=== PATIENT | male | born 2000 | race Caucasian/White ===

== ENCOUNTER 2021-05-29 15:52 | Emergency (ER) | payer MEDICAID, SELFPAY ==
[2021-05-29 15:53] VITALS: BP 145/104; PULSE 106; RESP 15; TEMP 36.3; O2SAT 95; BMI 36.6
--- NOTE | 2021-05-29 16:01 | EDS_ITS ---
HPI History of Present Illness Chief Complaint: Lower Extremity Injury Informant: patient Occured/Mechanism Mechanism/Context: Yes fall Onset/Context/Timing Onset: Today Current Severity: Mild Maximum Severity: Moderate Narrative Narrative: Patient presents secondary to fall and right ankle injury. Patient states he tripped over his cat and fell down 8 steps. Is complaining of pain to the lateral portion of the right ankle. He denies any other injury. He states he iced and elevated his ankle for 20 minutes and when it did not improve he came to the emergency room. He has not taken anything for pain. PFSH PFSH no medical history Home Medications clonidine HCl 0.2 mg PO DAILY 05/29/21 [History Last Taken Unknown] dextroamphetamine-amphetamine 30 mg PO DAILY 05/29/21 [History Last Taken Unkno wn] naproxen [Naprosyn] 500 mg PO BID PRN #20 tab 05/29/21 [Rx Last Taken Unknown] Allergy/AdvReac Type Severity Reaction Status Date / Time No Known Allergies Allergy Verified 05/29/21 15:55 Social History Smoking Status: Unknown if ever smoked ROS ROS ED Constitutional Constitutional ED: Denies chills or fever(s) Eyes Eyes: Denies change in vision ENT ENT ED: Denies sore throat Cardiovascular Cardiovascular: Denies chest pain Respiratory/Chest Respiratory/Chest: Denies cough or dyspnea Gastrointestinal Gastrointestinal: Denies abdominal pain, nausea or vomiting Musculoskeletal Musculoskeletal: Denies back pain or neck pain Integumentary Denies Abrasions or rash Neurologic Neurologic: Denies headache(s), paresthesias or weakness Psychiatric Psychiatric: Denies anxiety or depression Allergic/Immunologic Allergic/Immunologic ED: Denies urticaria EXAM Physical Exam Const Vital Signs: 05/29/21 15:53 Temperature 97.3 F L Temperature Source Temporal Pulse Rate 106 H Respiratory Rate 15 Blood Pressure 145/104 H Blood Pressure Mean 117 Pulse Ox 95 Oxygen Delivery Method Room Air Positive well nourished and well developed General Appearance ED: well developed HEENT Reports normocephalic and head/scalp atraumatic Eyes PERRL and EOMs intact bilaterally Neck supple Chest Wall inspection of chest normal and palpation of chest normal Resp normal respiratory effort and clear to auscultation bilaterally Cardio regular rate and regular rhythm GI normal to inspection, nondistended, normoactive bowel sounds Palpation: soft Extremity Extremity Narrative: Tenderness palpation and minimal edema to the lateral malleolus of the right ankle. No tenderness of the foot itself. Strong distal pulses and normal cap refill. No tenderness at the knee itself. Neuro oriented x3 and no sensory deficits noted Sensorium / Orientation: alert Motor Exam: strength 5/5 throughout Psych mental status grossly normal Skin no rashes or lesions noted MDM MDM MDM Narrative Medical decision making narrative: Patient was given naproxen for pain. Right ankle x-rays are obtained. Lab Data Attestation: I reviewed the patient's lab results. Treatment and Re-Evaluation Comments:: Right ankle x-ray per my interpretation reveals no evidence of fracture. Patient be given a stirrup splint and crutches. He may weight-bear as tolerated. Prescription for naproxen will be sent to the pharmacy. He is referred to Dr. Vickers, on-call for orthopedics if not improving. Discharge Plan Triage Chief Complaint: Lower Extremity Injury ED Provider: Lorraine Roe Dx/Rx/DC Orders Clinical Impression: Ankle sprain Instructions: ED Ankle Sprain (Adult) Prescriptions: New naproxen [Naprosyn] 500 mg tablet 500 mg PO BID PRN (Reason: pain) Qty: 20 RF: 0 No Action clonidine HCl 0.2 mg tablet 0.2 mg PO DAILY RF: 0 dextroamphetamine-amphetamine 30 mg capsule,extended release 24hr 30 mg PO DAILY RF: 0 Primary Care Provider: Jermaine Hurtado Referrals: Jermaine Hurtado MD [Primary Care Provider] - Filippo Vickers MD [STAFF PHYSICIAN] - As Needed Disposition Disposition: Home, Self Care
--- NOTE | 2021-05-29 16:03 | RAD_ITS ---
STUDY: X-RAY - RIGHT ANKLE REASON FOR EXAM: Male, 20 years old. fall TECHNIQUE: 3 view(s) of the ankle. COMPARISON: None. FINDINGS: Mild soft tissue swelling is present around ankle joint. No visualized fractures. Normal visualized distal tibia and fibula. Normal medial and lateral malleoli. Normal tibiotalar articulation and ankle mortise. Normal visualized talus and calcaneus. The visualized subtalar, talonavicular, calcaneocuboid and tarsal articulations are normal. RAD/Ankle min 3 Views IMPRESSION: 1. Mild soft tissue swelling is present around ankle joint. No visualized fractures. Electronically Signed: Guille Delvalle MD at 17:05 EDT , Service support ,
[2021-05-29] MEDS: Naproxen 500 MG Tablet PO (16:20)
== END 2021-05-29 16:40 | disposition home or self-care (01) ==
PROVIDERS: Emergency Provider Emergency Medicine; PCP Family Medicine
DX: S93.401A Sprain of unspecified ligament of right ankle, initial encounter (principal); W10.9XXA Fall (on) (from) unspecified stairs and steps, initial encounter; Y93.01 Activity, walking, marching and hiking; Y92.009 Unspecified place in unspecified non-institutional (private) residence as the place of occurrence of the external cause; Y99.8 Other external cause status
CPT/HCPCS: 73610; 99285

== ENCOUNTER 2021-10-11 13:15 | Emergency (ER) | payer MEDICAID, SELFPAY ==
[2021-10-11 13:16] VITALS: BP 140/93; PULSE 104; RESP 16; TEMP 36.5; O2SAT 97; BMI 38.2
--- NOTE | 2021-10-11 14:01 | RAD_ITS ---
STUDY: X-RAY CHEST REASON FOR EXAM: Male, 20 years old. Cough TECHNIQUE: Single AP portable view of the chest. COMPARISON: None. FINDINGS: The lungs are clear and expanded. There is no demonstrated pleural abnormality. Normal size heart. Normal mediastinum and wiley. Normal visualized pulmonary arteries. Normal visualized aortic arch and descending thoracic aorta. Normal visualized thoracic spine. Normal visualized ribs, clavicles, and shoulders. There is no demonstrated abnormality of the visualized soft tissue structures of the upper abdomen. RAD/Chest 1 View (Portable) IMPRESSION: Normal x-ray examination of the chest. Electronically Signed: Roney Ramsey MD at 14:52 EST Tel , Service support ,
--- NOTE | 2021-10-11 14:02 | EX.ED.DYSGE1 ---
HPI History of Present Illness Chief Complaint: Nausea/Vomiting Informant: patient Onset/Context/Timing Onset: Today Context: Gradual Onset Timing: Waxes and wanes Quality: Cramping Location: Right upper quadrant Worsened by: Nothing Relieved by: [place] juice Narrative Narrative: Patient presents with hematemesis that began today. Patient states he had been having some episodes of vomiting. Patient states there was some blood streaks in his emesis today. Patient admits to some right upper quadrant abdominal pain that has been waxing and waning throughout the day. Patient describes it as cramping. Patient states he got better after drinking orange juice. Patient states nothing makes it worse. Patient admits to some diarrhea today as well. Patient denies any dysuria or hematuria. [facility] Medical History ADHD Home Medications clonidine HCl 0.2 mg PO DAILY 05/29/21 [History Last Taken Unknown] dextroamphetamine-amphetamine 30 mg PO DAILY 05/29/21 [History Last Taken Unknown] naproxen [Naprosyn] 500 mg PO BID PRN #20 tab 05/29/21 [Rx Last Taken Unknown] ondansetron 4 mg PO Q8H PRN PRN #10 tab 10/11/21 [Rx Last Taken Unknown] Allergy/AdvReac Type Severity Reaction Status Date / Time No Known Allergies Allergy Verified 10/11/21 13:18 Surgical History no surgical history no surgical history Social History Smoking Status: Never smoker ROS ROS ED Constitutional Constitutional ED: Denies chills or fever(s) Eyes Eyes: Denies blurry vision or change in vision ENT ENT ED: Denies rhinorrhea or sore throat Cardiovascular Cardiovascular: Denies chest pain or palpitations Respiratory/Chest Respiratory/Chest: Denies cough or dyspnea Gastrointestinal Gastrointestinal: Reports abdominal pain, diarrhea, nausea and vomiting Genitourinary Genitourinary ED: Denies dysuria or hematuria Musculoskeletal Musculoskeletal: Reports neck pain; Denies back pain Integumentary Denies abscess or rash Neurologic Neurologic: Denies headache(s) or weakness Allergic/Immunologic Allergic/Immunologic ED: Denies mouth swelling or urticaria EXAM Physical Exam Const Vital Signs: 10/11/21 13:16 Temperature 97.7 F L Temperature Source Temporal Pulse Rate 104 H Respiratory Rate 16 Blood Pressure 140/93 H Blood Pressure Mean 108 Pulse Ox 97 Oxygen Delivery Method Room Air Positive well nourished and well developed General Appearance ED: well developed HEENT Reports moist mucous membranes Neck supple and no JVD Resp normal respiratory effort and clear to auscultation bilaterally Cardio regular rate, regular rhythm and no murmurs GI normal to inspection, nondistended, normoactive bowel sounds and non-tender Palpation: soft Extremity normal to inspection General Extremety ED: Negative for edema or tenderness General Extremity: Negative for edema Neuro oriented x3, CN's II-XII intact bilaterally and no sensory deficits noted Sensorium / Orientation: alert Motor Exam: strength 5/5 throughout Psych mental status grossly normal Skin no rashes or lesions noted MDM MDM MDM Narrative Medical decision making narrative: Patient was given IV fluids and Zofran. CBC was normal. There is no anemia. Comprehensive metabolic profile was essentially within normal limits. Lipase was normal. Urinalysis does not show any evidence of urinary tract infection. Portable 1 view chest x-ray was obtained. On my interpretation, lung guthrie are clear. There is normal cardiac silhouette. There is no evidence of pneumomediastinum. Bony thorax is normal. There is no acute process noted. Radiologist also interpreted the x-ray and agrees. Patient was advised of his findings. Patient was given a prescription for Zofran. Patient was instructed to drink small amounts of fluids more frequently. Patient was instructed to advance his diet as tolerated. Patient was instructed to follow-up with his primary care physician in 5 to 7 days. Patient understood and was agreeable with the plan. All questions were answered. Lab Data Labs: Laboratory Results - last 24 hr 10/11/21 10/11/21 10/11/21 13:44 13:44 14:15 WBC 8.2 RBC 5.26 Hgb 15.5 Hct 43.8 MCV 83.3 MCH 29.5 MCHC 35.4 RDW Std Deviation 38.3 RDW Coeff of Swapna 12.7 Plt Count 308 MPV 9.8 Immature Gran % (Auto) 0.200 Neut % (Auto) 62.4 Lymph % (Auto) 27.5 [place] % (Auto) 7.2 Eos % (Auto) 2.3 Baso % (Auto) 0.4 Absolute Neuts (auto) 5.1 Absolute Lymphs (auto) 2.25 Nucleated RBC % 0 Sodium 139 Potassium 3.9 Chloride 109 H Carbon Dioxide 24.0 Anion Gap 6 BUN 6 L Creatinine 0.59 L Estim Creat Clear Calc 183.61 Est GFR (MDRD) Af Amer 220 Est GFR (MDRD) Non-Af 182 BUN/Creatinine Ratio 10.2 Glucose 95 Calcium 9.5 Total Bilirubin 0.50 AST 11 L ALT 17 Alkaline Phosphatase 99 Total Protein 7.7 Albumin 3.9 Globulin 3.8 Albumin/Globulin Ratio 1.0 Lipase 75 Urine Color Yellow Urine Clarity Clear Urine pH 7.0 Ur Specific [place] 1.010 Urine Protein 15 H Urine Glucose (UA) Normal Urine Ketones Negative Urine Occult Blood Negative Urine Nitrite Negative Urine Bilirubin Negative Urine Urobilinogen 1 H Ur Leukocyte Esterase Negative Urine RBC 0 SEEN Urine WBC 0 SEEN Ur Squamous Epith Cells 0 SEEN Urine Bacteria 0 SEEN Urine Mucus 0 SEEN Radiography Diagnostic Testing: Clinical Impression(s) from Imaging Studies Chest X-Ray 10/11/21 14:01 IMPRESSION: Normal x-ray examination of the chest. Electronically Signed: Roney Ramsey MD at 14:52 EST Tel , Service support , Discharge Plan Triage Chief Complaint: Nausea/Vomiting ED Provider: Mariusz Jean Dx/Rx/DC Orders Clinical Impression: Nausea and vomiting Instructions: ED Vomiting (Adult) Prescriptions: New ondansetron [ondansetron] 4 MG tablet 4 mg PO Q8H PRN PRN (Reason: Nausea) Qty: 10 RF: 0 No Action clonidine HCl 0.2 mg tablet 0.2 mg PO DAILY RF: 0 dextroamphetamine-amphetamine 30 mg capsule,extended release 24hr 30 mg PO DAILY RF: 0 naproxen [Naprosyn] 500 mg tablet 500 mg PO BID PRN (Reason: pain) Qty: 20 RF: 0 Primary Care Provider: Jermaine Hurtado Referrals: Jermaine Hurtado MD [Primary Care Provider] - 3-5 Days Disposition Disposition: Home, Self Care
[2021-10-11 14:10] LABS: Absolute Lymphocyte Count 2.25 X10^3/uL (0.83-4.51); Absolute Neutrophil Count 5.1 X10^3/uL (2.0-7.7); Basophil# 0.03 X10^3/uL; Basophil% 0.4 % (0-1); Eosinophil# 0.19 X10^3/uL; Eosinophils% 2.3 % (0-5); Hematocrit 43.8 % (40-54); Hemoglobin 15.5 g/dL (13.0-16.5); Lymphocyte # 2.25 X10^3/ul (0.83-4.51); Lymphocyte % 27.5 % (19-41); Mean Corp Hgb Conc 35.4 g/dL (32-36); Mean Corpuscular Hgb 29.5 pg (27.0-32.0); Mean Corpuscular Volume 83.3 fL (80-94); Mean Platelet Vol. 9.8 fl (6.2-12.0); Monocyte# 0.59 X10^3/uL; Monocyte% 7.2 % (0-10); NRBC Flagged by Analyzer 0 % (0-5); Neutrophil # 5.09 X10^3/uL (2.7-7.7); Neutrophil % 62.4 % (47-70); Platelet Count 308 K/mm3 (150-450); RBC Distribution Width CV 12.7 % (11.6-14.6); RBC Distribution Width SD 38.3 fl (35.1-43.9); Red Blood Count 5.26 M/mm3 (4.6-6.2); White Blood Count 8.2 K/mm3 (4.4-11.0)
[2021-10-11] MEDS: 0.9% Normal Saline 1,000 ML 1000 ML IV (14:17)
[2021-10-11] MEDS: Ondansetron 4 MG/2 ML Vial IV (14:17)
[2021-10-11 14:23] LABS: Bacteria 0 SEEN /hpf (None Seen); Mucous, Urine 0 SEEN /hpf (<or=2+); Red Blood Cells-Urine 0 SEEN /hpf (0-5); Squamous Epithelial Cells - UA 0 SEEN /hpf (0-5); White Blood Cells 0 SEEN /hpf (0-5)
[2021-10-11 14:24] LABS: Color, Urine Yellow (Yellow); Glucose, Dipstick Normal (Normal); Ketone-Dipstick Negative (Negative); Leukocyte Esterase-Dipstick Negative /ul (Negative); Nitrite-Dipstick Negative (Negative); Occult Blood-Urine Negative /ul (Negative); Protein-Dipstick 15 mg/dl (Negative); Urine Bilirubin Dipstick Negative (Negative); Urine Clarity Clear (Clear); Urine Urobilinogen 1 mg/dl (Normal)
[2021-10-11 14:30] LABS: AST(SGOT) 11 U/L (15-37); Alanine Aminotransfer ALT/SGPT 17 U/L (16-61); Albumin, Serum 3.9 g/dL (3.2-5.0); Alkaline Phosphatase 99 U/L (45-117); Anion Gap 6 (5-15); BUN 6 mg/dL (7-18); BUN/Creat Ratio 10.2 RATIO (10-20); Calcium,Total 9.5 mg/dL (8.5-10.1); Chloride 109 mmol/L (98-107); Creatinine, Serum 0.59 mg/dL (0.70-1.30); EST Glomerular Filtration Rate 182 mL/min (>60); Est Glom Filt Rate - Afr Amer 220 mL/min (>60); Estimated Creatinine Clearance 183.61 ml/min; Globulin 3.8 g/dL (2.2-4.2); Glucose 95 mg/dL (74-106); Lipase 75 U/L (73-393); Potassium 3.9 mmol/L (3.5-5.1); Protein, Total 7.7 g/dL (6.4-8.2); Sodium Level 139 mmol/L (136-145)
[2021-10-11 15:47] VITALS: BP 134/69; PULSE 59; RESP 16; O2SAT 97
== END 2021-10-11 15:47 | disposition home or self-care (01) ==
PROVIDERS: Emergency Provider Emergency Medicine; PCP Family Medicine
DX: R11.2 Nausea with vomiting, unspecified (principal); R10.11 Right upper quadrant pain; R19.7 Diarrhea, unspecified; F90.9 Attention-deficit hyperactivity disorder, unspecified type; Z79.899 Other long term (current) drug therapy
CPT/HCPCS: 71045; 80053; 81001; 83690; 85025; 96374; 99283; J7030; A4216; J2405

== ENCOUNTER → 2022-07-06 | Outpatient (CLI) | payer MEDICAID, SELFPAY ==
--- NOTE | 2022-07-06 14:30 | MRI_ITS ---
STUDY: MRI BRAIN WITH AND WITHOUT CONTRAST REASON FOR EXAM: Male, 21 years old. Migraine headaches, neurofibromatosis type I TECHNIQUE: Standardized multiplanar fat and water weighted pulse sequences were obtained. IV 19ml Clariscan was administered for the contrast portion of the examination. COMPARISON: MRI of the brain dated APRIL 09, 2016 FINDINGS: Normal size of the ventricles and extra-axial spaces for the patient''s age. Normal white matter tracts of the supratentorial brain. There is no evidence for recent intracranial ischemia or other cause of cytotoxic edema on diffusion weighted imaging (DWI). Normal T2* images of the brain without demonstrated susceptibility artifact. There is no demonstrated hemosiderin stain. There are no white matter hyperintensities. Specifically, there are no focal areas of white matter gliosis which are occasionally associated with vasospastic migraine headaches. No focal brain parenchymal lesions are present. No edema or abnormal enhancement is present. No abnormal thickening or enhancement of the meninges or dura demonstrated. Normal bilateral basal ganglia. Normal thalami. There is no extra-axial fluid accumulation. Normal flow voids within the major intracranial circulation suggesting patency by spin echo criteria. Normal venous enhancement. There is no enhancing intra-axial or extra-axial abnormality. Normal sella turcica, pituitary gland, infundibular stalk, optic chiasm and hypothalamus. Normal tectal plate and pineal gland. Normal midbrain, aftab and medulla. Normal cerebellum. Normal basal cisterns. Normal bilateral temporal bones. Normal bilateral internal auditory canals. No demonstrated orbital abnormality, within the constraints of a routine brain study. There is moderate to severe mucus opacification of the bilateral ethmoid air cells.. Normal calvarium and skull base. Reidentification of a small smooth nodule in the scalp overlying the left superior and anterior aspect of the frontal bone. The nodule enhances on the postcontrast study. 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 Normal visualized upper cervical spine. MRI/Brain W/WO Contrast IMPRESSION: 1. Normal unenhanced and enhanced MRI of the brain. 2. No signal abnormality of the brain parenchyma 3. No lesions or enhancement of the brain parenchyma. 4. Reidentification of a small smooth nodule in the scalp overlying the left superior and anterior aspect of the frontal bone. The nodule enhances on the postcontrast study. 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 Electronically Signed: Guille Delvalle MD at 16:01 EDT ,
[2022-07-06 14:39] LABS: Absolute Neutrophil Count 9.2 X10^3/uL (2.0-7.7); Basophil# 0.04 X10^3/uL; Basophil% 0.3 % (0-1); Eosinophil# 0.15 X10^3/uL; Eosinophils% 1.2 % (0-5); Hematocrit 41.4 % (40-54); Hemoglobin 14.1 g/dL (13.0-16.5); Lymphocyte % 17.2 % (19-41); Mean Corp Hgb Conc 34.1 g/dL (32-36); Mean Platelet Vol. 9.7 fl (6.2-12.0); Monocyte# 0.62 X10^3/uL; Monocyte% 5.1 % (0-10); NRBC Flagged by Analyzer 0 % (0-5); Neutrophil # 9.22 X10^3/uL (2.7-7.7); Neutrophil % 75.7 % (47-70); Platelet Count 340 K/mm3 (150-450); RBC Distribution Width SD 37.2 fl (35.1-43.9); Red Blood Count 4.87 M/mm3 (4.6-6.2); White Blood Count 12.2 K/mm3 (4.4-11.0)
[2022-07-06 15:09] LABS: Vitamin B12 480 pg/mL (211-911)
[2022-07-06 15:22] LABS: ALB/GLOB Ratio 1.1 RATIO (0.9-2.4); AST(SGOT) 10 U/L (15-37); Alanine Aminotransfer ALT/SGPT 19 U/L (16-61); Alkaline Phosphatase 92 U/L (45-117); Anion Gap 6 (5-15); BUN 10 mg/dL (7-18); BUN/Creat Ratio 14.9 RATIO (10-20); Calcium,Total 9.2 mg/dL (8.5-10.1); Chloride 106 mmol/L (98-107); Creatinine, Serum 0.67 mg/dL (0.70-1.30); EST Glomerular Filtration Rate 155 mL/min (>60); Est Glom Filt Rate - Afr Amer 187 mL/min (>60); Globulin 3.8 g/dL (2.2-4.2); Glucose 90 mg/dL (74-106); Potassium 3.9 mmol/L (3.5-5.1); Protein, Total 7.8 g/dL (6.4-8.2); Sodium Level 139 mmol/L (136-145); Thyroid Stim Hormone (TSH) 0.52 uIU/mL (0.358-3.74)
[2022-07-12 11:14] LABS: Vitamin B1, Thiamine 158.1 nmol/L (66.5-200.0)
== END | disposition home or self-care (01) ==
PROVIDERS: PCP Family Medicine; Visit Provider Psychiatry & Neurology Neurology
DX: G43.909 Migraine, unspecified, not intractable, without status migrainosus (principal); Q85.01 Neurofibromatosis, type 1; F81.9 Developmental disorder of scholastic skills, unspecified
CPT/HCPCS: 36415; 70553; 80053; 82607; 82746; 84425; 84443; 85025; A9575

== ENCOUNTER 2023-08-24 12:35 | Emergency (ER) | payer MEDICAID, SELFPAY ==
[2023-08-24 12:36] VITALS: BP 140/59; PULSE 84; RESP 16; TEMP 36.7; O2SAT 95; BMI 39.0
--- NOTE | 2023-08-24 13:07 | EX.ED.DYSGE1 ---
HPI History of Present Illness Chief Complaint: Dizziness Detail of Chief Complaint: Lightheadedness, vomiting blood Informant: patient Onset/Context/Timing Onset: Today Context: Sudden Onset Timing: Continuous Quality: Epigastrium Location: Burning Current Severity: Gone Maximum Severity: Moderate Worsened by: Vomiting Relieved by: Nothing Associated Symptoms Associated Symptoms: Hematemesis Narrative Narrative: Patient is a 22-year-old male who has mild cognitive impairment who presents with epigastric burning sensation without reflux-like symptoms. He denies history of reflux, hiatal hernia or peptic ulcer disease. He has vomited 3 times. The first time he did not note any blood. He states that there was streaks of blood second time and blood the third time. He denies black or maroon-colored stool. He does report orthostatic symptoms. He also reported dizziness. When asked to define dizziness he meant lightheaded when he stood. He is on no medication. He has no allergies. He does have history of hypertension per old records. He states he has had no medicine. Prior similar symptoms: No Recent Illness/Hospitalization: No PFSH PFSH Medical History ADHD Hypertension Home Medications NK 08/24/23 [History Last Taken Unknown] Allergy/AdvReac Type Severity Reaction Status Date / Time No Known Allergies Allergy Verified 08/24/23 12:42 Family History Father Diabetes Heart disease Mother Heart disease Hypertension Mental disorder Suicide attempt Surgical History No history of previous surgery Social History housing: homeless Smoking Status: Never smoker second hand exposure: Yes alcohol intake: never substance use type: does not use what type of physical activity do you participate in: walking frequency: daily giacomo/nondenominational: Cheondoism seatbelt use: always ROS ROS ED Constitutional Constitutional ED: Denies chills, fever(s), subjective, sweats or weight loss Eyes Eyes: Denies blurry vision, change in vision or diplopia ENT ENT ED: Denies ear pain, rhinorrhea or sore throat Cardiovascular Cardiovascular: Denies chest pain, orthopnea, palpitations or racing heartbeat Respiratory/Chest Respiratory/Chest: Denies cough, dyspnea, dyspnea on exertion or orthopnea Gastrointestinal Gastrointestinal: Reports abdominal pain, nausea, vomiting and other Details: Hematemesis. ; Denies constipation, diarrhea or melena Genitourinary Genitourinary ED: Denies dysuria, hematuria or urinary frequency Neurologic Neurologic: Denies paresthesias or weakness Psychiatric Psychiatric: Denies anxiety or depression Hematologic/Lymphatic Hematologic/Lymphatic: Reports systems reviewed and no addt'l complaints, except as documented EXAM Physical Exam Const Vital Signs: 08/24/23 12:36 08/24/23 12:44 Temperature 98.1 F Temperature Source Oral Pulse Rate 84 Respiratory Rate 16 Respiratory Effort Normal Respiratory Pattern Normal Blood Pressure 140/59 H Blood Pressure Mean 86 Pulse Ox 95 Oxygen Delivery Method Room Air Positive well nourished, well developed and obese Constitutional Narrative: Blood pressure is slightly elevated. General Appearance ED: well developed and NAD; Negative for cyanotic, diaphoretic or pallor Nutritional Appearance: obese HEENT Reports TM's clear and moist mucous membranes HEENT Narrative: Head is atraumatic and normocephalic. Tympanic Membrane ED: Yes TM's clear Eyes PERRL and EOMs intact bilaterally General Eye ED: Negative for pale conjunctiva or scleral icterus Neck no lymphadenopathy, supple and no JVD Chest Wall inspection of chest normal and palpation of chest normal Resp normal respiratory effort and clear to auscultation bilaterally Cardio regular rate, regular rhythm, S1 normal heart sound, S2 normal heart sound and no murmurs GI normal to inspection, nondistended, normoactive bowel sounds and non-distended; Negative for hepatosplenomegaly or no masses Auscultation: hypoactive bowel sounds Palpation: soft and tender epigastric Back/Spine no CVA tenderness Extremity normal to inspection General Extremety ED: Negative for edema or tenderness General Extremity: Negative for edema Neuro oriented x3, CN's II-XII intact bilaterally and no sensory deficits noted Psych mental status grossly normal Skin no rashes or lesions noted, no wounds and skin turgor normal General Skin Exam: elasticity normal; Negative for jaundice or pallor MDM MDM MDM Narrative Medical decision making narrative: Suspect patient's upper GI bleed is due to Tiffany-Zhou tear. Will drop NG as he is actively bleeding. History of Protonix. CBC was obtained to assess H&H. BMP to assess BUN to creatinine ratio. If NG is positive we will contact Dr. Roman if negative will pull and treat for Tiffany-Zhou tear. History & Record Review Additional record(s) reviewed:: Prior outpatient record, Prior ED visit and Prior labs Lab Data Attestation: I reviewed the patient's lab results. Lab results narrative: CBC and BMP are both normal. Labs: Laboratory Results - last 24 hr 08/24/23 13:26 WBC 9.1 RBC 5.42 Hgb 16.0 Hct 46.3 MCV 85.4 MCH 29.5 MCHC 34.6 RDW Std Deviation 38.4 RDW Coeff of Swapna 12.5 Plt Count 353 MPV 10.0 Immature Gran % (Auto) 0.300 Neut % (Auto) 61.7 Lymph % (Auto) 29.1 [place] % (Auto) 7.3 Eos % (Auto) 1.2 Baso % (Auto) 0.4 Absolute Neuts (auto) 5.6 Absolute Lymphs (auto) 2.65 Nucleated RBC % 0 Sodium 140 Potassium 3.8 Chloride 107 Carbon Dioxide 24.0 Anion Gap 9 BUN 8 Creatinine 0.72 Estim Creat Clear Calc 147.91 Est GFR (MDRD) Af Amer 172 Est GFR (MDRD) Non-Af 142 BUN/Creatinine Ratio 11.1 Glucose 118 H Calcium 9.3 Treatment and Re-Evaluation :: Nurse informing that patient had no blood with emesis. NG was pulled. Discharge Plan Triage Chief Complaint: Dizziness ED Provider: Mehrdad Araujo Dx/Rx/DC Orders Clinical Impression: Tiffany-Zhou syndrome, Learning disability, Neurofibromatosis, type 1, Nausea & vomiting Instructions: Tiffany-Zhou Tear, ED Upper GI Bleeding (Stable) Prescriptions: No Action NK Primary Care Provider: Care Physician,No Primary Referrals: Jermaine Hurtado MD [Non-Staff] - 1-2 Weeks Disposition Disposition: Home, Self Care
[2023-08-24] MEDS: Oxymetazoline 0.05% 1 SPRAY SPRAY.BTL 2 SPRAY NASAL (13:23)
[2023-08-24] MEDS: Famotidine 200 MG/20 ML MDV 20 MG in 0.9% Normal Saline (Pres. free 8 ML 300 MG IV (13:24)
[2023-08-24 13:41] LABS: Absolute Lymphocyte Count 2.65 X10^3/uL (0.83-4.51); Absolute Neutrophil Count 5.6 X10^3/uL (2.0-7.7); Basophil# 0.04 X10^3/uL; Basophil% 0.4 % (0-1); Eosinophil# 0.11 X10^3/uL; Eosinophils% 1.2 % (0-5); Hematocrit 46.3 % (40-54); Lymphocyte # 2.65 X10^3/ul (0.83-4.51); Lymphocyte % 29.1 % (19-41); Mean Corp Hgb Conc 34.6 g/dL (32-36); Mean Corpuscular Hgb 29.5 pg (27.0-32.0); Mean Corpuscular Volume 85.4 fL (80-94); Monocyte# 0.67 X10^3/uL; Monocyte% 7.3 % (0-10); NRBC Flagged by Analyzer 0 % (0-5); Neutrophil # 5.62 X10^3/uL (2.7-7.7); Neutrophil % 61.7 % (47-70); Platelet Count 353 K/mm3 (150-450); RBC Distribution Width CV 12.5 % (11.6-14.6); RBC Distribution Width SD 38.4 fl (35.1-43.9); Red Blood Count 5.42 M/mm3 (4.6-6.2); White Blood Count 9.1 K/mm3 (4.4-11.0)
[2023-08-24 13:58] LABS: Anion Gap 9 (5-15); BUN 8 mg/dL (7-18); BUN/Creat Ratio 11.1 RATIO (10-20); Calcium,Total 9.3 mg/dL (8.5-10.1); Chloride 107 mmol/L (98-107); Creatinine, Serum 0.72 mg/dL (0.70-1.30); EST Glomerular Filtration Rate 142 mL/min (>60); Est Glom Filt Rate - Afr Amer 172 mL/min (>60); Estimated Creatinine Clearance 147.91 ml/min; Glucose 118 mg/dL (74-106); Potassium 3.8 mmol/L (3.5-5.1); Sodium Level 140 mmol/L (136-145)
[2023-08-24 14:29] VITALS: PULSE 72; RESP 16
== END 2023-08-24 14:30 | disposition home or self-care (01) ==
PROVIDERS: Emergency Provider Emergency Medicine; Visit Provider Emergency Medicine
DX: K22.6 Gastro-esophageal laceration-hemorrhage syndrome (principal); Q85.01 Neurofibromatosis, type 1; K92.0 Hematemesis; I10 Essential (primary) hypertension; F81.9 Developmental disorder of scholastic skills, unspecified; R42 Dizziness and giddiness; G31.84 Mild cognitive impairment of uncertain or unknown etiology; E66.9 Obesity, unspecified
CPT/HCPCS: 80048; 85025; 96374; 99285; A4216; J3490

== ENCOUNTER 2023-10-20 16:51 | Emergency (ER) | payer MEDICAID, SELFPAY ==
[2023-10-20 17:05] VITALS: BP 156/76; PULSE 89; RESP 18; TEMP 36.6; O2SAT 96
[2023-10-20 17:05] LABS: Absolute Lymphocyte Count 2.82 X10^3/uL (0.83-4.51); Absolute Neutrophil Count 5.6 X10^3/uL (2.0-7.7); Basophil# 0.04 X10^3/uL; Basophil% 0.4 % (0-1); Eosinophil# 0.23 X10^3/uL; Eosinophils% 2.4 % (0-5); Hematocrit 42.7 % (40-54); Hemoglobin 14.6 g/dL (13.0-16.5); Lymphocyte # 2.82 X10^3/ul (0.83-4.51); Lymphocyte % 29.4 % (19-41); Mean Corp Hgb Conc 34.2 g/dL (32-36); Mean Corpuscular Hgb 29.5 pg (27.0-32.0); Mean Corpuscular Volume 86.3 fL (80-94); Mean Platelet Vol. 10.2 fl (6.2-12.0); Monocyte# 0.83 X10^3/uL; Monocyte% 8.7 % (0-10); NRBC Flagged by Analyzer 0 % (0-5); Neutrophil # 5.64 X10^3/uL (2.7-7.7); Neutrophil % 58.8 % (47-70); Platelet Count 331 K/mm3 (150-450); RBC Distribution Width CV 12.3 % (11.6-14.6); RBC Distribution Width SD 38.4 fl (35.1-43.9); Red Blood Count 4.95 M/mm3 (4.6-6.2); White Blood Count 9.6 K/mm3 (4.4-11.0)
[2023-10-20 17:19] LABS: Anion Gap 7 (5-15); BUN 10 mg/dL (7-18); BUN/Creat Ratio 13.9 RATIO (10-20); Calcium,Total 9.3 mg/dL (8.5-10.1); Chloride 107 mmol/L (98-107); Creatinine, Serum 0.72 mg/dL (0.70-1.30); EST Glomerular Filtration Rate 142 mL/min (>60); Est Glom Filt Rate - Afr Amer 171 mL/min (>60); Glucose 109 mg/dL (74-106); Potassium 3.6 mmol/L (3.5-5.1); Sodium Level 139 mmol/L (136-145); Troponin-I HS (w/2H Reflex) 5 pg/mL (3.0-78.0)
--- NOTE | 2023-10-20 17:30 | RAD_ITS ---
INDICATION: chest pain EXAMINATION/TECHNIQUE: X-RAY - XR Chest 1 View COMPARISON: 10/11/2021. FINDINGS: LINES/DEVICES: None. LUNGS: No consolidation, edema or effusion. No pneumothorax. MEDIASTINUM AND CARDIOVASCULAR STRUCTURES: Cardiac silhouette not enlarged. Central airways and mediastinal contour are unremarkable. BONES AND SOFT TISSUES: Unremarkable. RAD/Chest 1 View (Portable) IMPRESSION: No radiographic evidence of acute cardiopulmonary disease. Electronically Signed: Vikki Alvarado MD at 18:08 EST Reading Location ID and State: [id number] / Tel , Service support ,
--- OUTSIDE RECORDS SUMMARY | 2023-10-20 18:05 | XMS RPT_ITS | CCD ---
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 Helper Name Role Phone LULA RODAS Unavailable Unavailable PHYSICIAN, NONE Unavailable Unavailable TRESA KIRK Unavailable Unavailable PHYSICIAN, NONE Unavailable Unavailable DANYA GALLARDO Unavailable Unavailable PHYSICIAN, NONE Unavailable Unavailable ERIC OSUNA Unavailable Unavailable PHYSICIAN, NONE Unavailable Unavailable VIVEK RODAS Unavailable Unavailable GORDON BARBOSA Unavailable Unavailable VIVEK RODAS Unavailable Unavailable GORDON BARBOSA Unavailable Unavailable Gordon Barbosa MD Primary Care Provider DOSHASMUKH WILEY MD Attending Unavailalexandra e DOSHASMUKH WILEY MD Primary Care Unavailalexandra e DOSHASMUKH WILEY MD Admitting UnavailANUPAM Paredes Attending Unavailable ANUPAM RITTER Primary Care Unavailable ANUPAM RITTER Admitting Unavailable DELMIS GEE MD Attending Unavailable DELMIS GEE MD Primary Care Unavailable DELMIS GEE MD Admitting Unavailable THEODORA BRADLEY DO Admitting Unavailable GORDON BARBOSA Referring Unavailab GORDON Espinosa Consulting Unavailab THEODORA Adkins DO Attending Unavailable THEODORA BRADLEY DO Primary Care Unavailable PROVIDER, UNKNOWN Consulting Unavailable DR RUBY MOORE Attending Unavailaiden ble DR RUBY MOORE Primary Care Unavaila ble DR RUBY MOORE Admitting Unavaila ble Medications Current Medications Medication Drug Class(es) Dates Sig (Normalized) Sig (Original) omeprazole 40 mg delayed release oral capsule (1 source) Proton Pump Inhibitor Start: 12-25-2021 End: 03-25-2022 take 1 capsule by mouth once daily omeprazole (PRILOSEC) 40 mg capsule Indications: Hematemesis with nausea , Hematochezia , Gastroesophageal reflux disease, unspecified whether esophagitis present Take 1 capsule by mouth once daily. 30 capsule 2 12/25/2021 03/25/2022 Active Completed/Discontinued Medications Medication Drug Class(es) Dates Sig (Normalized) Sig (Original) 24 hr amphetamine aspartate 7.5 mg / amphetamine sulfate 7.5 mg / dextroamphetamine saccharate 7.5 mg / dextroamphetamine sulfate 7.5 mg extended release oral capsule (1 source) Central Nervous System Stimulant Start: 05-02-2015 take 1 capsule by mouth once daily dextroamphetamine- amphetamine (ADDERALL XR) 30 mg 24 hr capsule Indications: ADHD (attention deficit hyperactivity disorder) Take 1 capsule by mouth once daily. 30 capsule 0 05/02/2015 Active Problems Active Problems Problem Classification Problem Date Documented Date Episodic/Chronic Attention-deficit, conduct, and disruptive behavior disorders (1 source) Attention deficit hyperactivity disorder; Translations: [Attention deficit disorder with hyperactivity] Onset: 10-26-2011 10-19-2021 Chronic Attention-deficit, conduct, and disruptive behavior disorders (1 source) Attention-deficit hyperactivity disorder, unspecified type; Translations: [Attention-deficit hyperactivity disorder, unspecified type] Onset: 12-08-2022 Chronic Headache; including migraine (1 source) Migraine; Translations: [Migraine, unspecified, not intractable, without status migrainosus] 02-09-2017 Chronic Nervous system congenital anomalies (1 source) Neurofibromatosis syndrome; 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, unspecified] Onset: 09-03-2009 10-19-2021 Chronic Substance-related disorders (1 source) Nicotine dependence, unspecified, uncomplicated; Translations: [Nicotine dependence, unspecified, uncomplicated] Onset: 07-19-2022 Chronic Past or Other Problems Problem Classification Problem Date Documented Da te Episodic/Chronic Fever of unknown origin (1 source) Fever, unspecified; Translations: [Fever, unspecified] Onset: 07-26-2022 Episodic Nonspecific chest pain (3 sources) Chest pain, unspecified; Translations: [Chest pain, unspecified] Onset: 07-19-2022 Episodic Residual codes; unclassified (1 source) Family history of ischemic heart disease and other diseases of the circulatory system; Translations: [Family history of ischemic heart disease and other diseases of the circulatory system] Onset: 07-19-2022 Episodic Residual codes; unclassified (1 source) Family history of stroke; Translations: [Family history of stroke] Onset: 07-19-2022 Episodic Results Test Name Value Interpretation Reference Range Facil ity Encounters Encounter Date Encounter Type Care Provider Facility Start: 12-08-2022 ambulatory ANUPAM RITTER [facility] Start: 07-26-2022 End: 07-26-2022 ambulatory DELMIS GEE [facility] Start: 07-19-2022 End: 07-20-2022 Emergency department patient visit HASMUKH TUTTLE DOS%FRANCINE [facility] Start: 01-30-2022 End: 01-31-2022 Emergency department patient visit THEODORA GALE [facility] Start: 01-27-2022 End: 01-27-2022 Emergency department patient visit DR RUBY MOORE [facility] Start: 01-05-2022 Telephone encounter Danny Barbosa MD Work Phone: [facility] [place] Plan of Treatment Date Care Activity Detail Author Start: 06-24-2022 Influenza vaccination INFLUENZA (Sea son Ended) [facility] Start: 05-01-2022 COVID-19 VACCINE (3 - Booster for Moderna series) COVID-19 VACCINE (3 - Booster for Moderna series) [facility] Start: 10-26-2021 Urine microalbumin profile DTA P,TDAP,TD (7 - Td or Tdap) [facility] Start: 2017 ONE PNEUMOVAX PRIOR TO AGE 65 ONE PNEUMOVAX PRIOR TO AGE 65 [facility] Start: 2016 HEPATITIS C SCREENING HEPATITIS C SC GABYNING [facility] Start: 2016 HIV SCREENING HIV SCREENING [facility] Start: 2012 PEDS TO ADULT TRANSI TION ANNUAL ASSESSMENT PEDS TO ADULT TRANSITION ANNUAL ASSESSMENT [facility] Start: 2010 Adult depression scr eening assessment DEPRESSION SCREENING [facility] Start: 2010 PEDS TO ADULT TRANSI TION INITIAL DISCUSSION PEDS TO ADULT TRANSITION INITIAL DISCUSSION [facility] Start: 2009 HPV VACCINE (1 - Mal e 2-dose series) HPV VACCINE (1 - Male 2-dose series) [facility] Start: 2008 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 (1 of 2 - Risk Bexsero 2-dose series) MENINGOCOCCAL B: Consider based on risk (1 of 2 - Risk Bexsero 2-dose series) [facility] Immunizations Immunization Date Immunization Notes Care Provider Tasneem freeman 02-09-2017 meningococcal polysaccharide (groups A, C, Y and W-135) diphtheria toxoid conjugate vaccine (MCV4P) Gordon Barbosa MD Work Phone: [facility] 05-02-2015 meningococcal polysaccharide (groups A, C, Y and W-135) diphtheria toxoid conjugate vaccine (MCV4P) Gordon Barbosa MD Work Phone: [facility] Work Phone: 10-26-2011 influenza virus vaccine, unspecified formulation Gordon Barbosa MD Work Phone: [facility] Work Phone: 10-26-2011 tetanus toxoid, redu amadou diphtheria toxoid, and acellular pertussis vaccine, adsorbed Gordon Barbosa MD Work Phone: [facility] Work Phone: 10-26-2011 varicella virus vaccine Sholai omaira Barbosa MD Work Phone: [facility] Work Phone: 08-02-2008 influenza virus vaccine, live, attenuated, for intranasal use Gordon Barbosa MD Work Phone: [facility] Work Phone: 02-06-2004 diphtheria, tetanus toxoids and acellular pertussis vaccine Gordon Barbosa MD Work Phone: [facility] Work Phone: 02-06-2004 measles, mumps and rubella virus vaccine Gordon Barbosa MD Work Phone: [facility] Work Phone: 02-06-2004 poliovirus vaccine, inactivated Gordon Barbosa MD Work Phone: [facility] Work Phone: 06-04-2000 diphtheria, tetanus toxoids and acellular pertussis vaccine Gordon Barbosa MD Work Phone: [facility] Work Phone: 06-04-2000 haemophilus influenz ae type b vaccine, HbOC conjugate Gordon Barbosa MD Work Phone: [facility] Work Phone: 06-04-2000 poliovirus vaccine, inactivated Gordon Barbosa MD Work Phone: [facility] Work Phone: 12-09-1999 measles, mumps and rubella virus vaccine Gordon Barbosa MD Work Phone: [facility] Work Phone: 12-09-1999 varicella virus vaccine Sholai omaira Barbosa MD Work Phone: [facility] Work Phone: 08-10-1999 hepatitis B vaccine, pediatric or pediatric/adolescent dosage Gordon Barbosa MD Work Phone: [facility] Work Phone: 05-30-1999 diphtheria, tetanus toxoids and acellular pertussis vaccine Gordon Barbosa MD Work Phone: [facility] Work Phone: 05-30-1999 haemophilus influenz ae type b vaccine, HbOC conjugate Gordon Barbosa MD Work Phone: [facility] Work Phone: 03-30-1999 diphtheria, tetanus toxoids and acellular pertussis vaccine Gordon Barbosa MD Work Phone: [facility] Work Phone: 03-30-1999 haemophilus influenz ae type b vaccine, HbOC conjugate Gordon Barbosa MD Work Phone: [facility] Work Phone: 03-30-1999 poliovirus vaccine, inactivated Gordon Barbosa MD Work Phone: [facility] Work Phone: 01-22-1999 diphtheria, tetanus toxoids and acellular pertussis vaccine Gordon Barbosa MD Work Phone: [facility] Work Phone: 01-22-1999 haemophilus influenz ae type b vaccine, HbOC conjugate Gordon Barbosa MD Work Phone: [facility] Work Phone: 01-22-1999 poliovirus vaccine, inactivated Gordon Barbosa MD Work Phone: [facility] Work Phone: 1998 hepatitis B vaccine, pediatric or pediatric/adolescent dosage Gordon Barbosa MD Work Phone: [facility] Work Phone: 1998 hepatitis B vaccine, pediatric or pediatric/adolescent dosage Gordon Barbosa MD Work Phone: [facility] Work Phone: Payers Date Payer Category Payer Medicaid [id number] 2016 Medicaid [employer] [facility] MEDICAID [id number] 2016-Present [phone] [address] [place] [address] Medicaid [id number] 1998 Unknown [id number] 1998 Unknown [id number] 1998 Unknown [id number] 1998 Unknown [id number] 1998 Unknown [id number] 1998 Unknown [id number] 1998 Unknown [id number] 1998 Unknown [id number] 1998 Unknown [id number] 1998 Unknown [id number] Social History Date Type Detail Facility Start: 12-24-[address] [facility] History of tobacco use Cigar Smoker [facility] Start: 12-24-2021 Tobacco use and exposure Forme r smokeless tobacco user [facility] History of tobacco use Snuff User [facility] Start: 12-25-2021 Alcohol intake Current non-dr rn plastic surgery of alcohol (finding) [facility] Start: 02-09-2017 Tobacco Comment <1 cigar per d ay, 1 dip every couple weeks [facility] Start: 1998 Sex Assigned At Not on file [facility] Start: 11-25-2021 End: 12-25-2021 Exposure to SARS-CoV-2 (event) Not sure [facility] Note 01-06-2022 Telephone Encounter - Ioana Tamayo Ma - 01/06/2022 1:49 PM EDTTelephone Encounter - Zoe Gasca Ma - 01/06/2022 11:37 AM EDTTelephone Encounter - Ioana Tamayo Ma - 01/05/2022 4:42 PM EDT Note Date & Type Note Facility 01-06-2022 Miscellaneous Notes No pt needs notified of results. This was a result note which I switched to phone note. I called pt veronica quiles fast busy. Tried calling other number [phone], was told I had the wrong number. Letter mailed to pt home to call office back for results. Ioana Tamayo Ma Felicia - pt was notified per result note, is that correct? Before I close encounter. Zoe Gasca Ma ----- Message from Gordon Barbosa MD sent at 01/05/2022 3:31 PM EDT ----- Normal labs aside from elevated fibrinogen and CRP which are likely acute phase response and not related to bleeding symptoms. CXR negative/normal. If patient is continuing to cough up blood, will place referral to pulmonology as discussed. Follow up with general surgery for blood in vomit and stools and with ENT for bloody noses. documented in this encounter [facility] Progress note 12-25-2021 Note Date & Type Note Facility 12-25-2021 Note HNO ID: [id number] Author: Gordon Barbosa MD Service: ? Author Type: Physician Type: Progress Notes Filed: 12/28/2021 11:09 AM Note Text: Chief Complaint No chief complaint on file. HPI Bria Drummond is a 21 year old male who presents here today for Above Complaints.. Patient evaluated at [facility] ED on 10/11 for CC nausea with vomiting and hematemesis which started same day. Also admitted to [facility] abdominal pain/cramping and diarrhea. Patient was given IV fluids and Zofran in the ED. CBC was normal. CMP, Lipase, UA, and CXR all normal. Given rx for zofran for home and advised patient to follow up in our office in 5-7 days. Since his discharge home, patient states that he has had continued episodes of hematemesis and now has hemoptysis 1-2 times per day, and frequent nosebleeds. Admits to intermittent SOB, lightheadedness, and chest pain with cough. Denies fever, wheezing, travel outside the country, incarceration, contact with TB. Vomiting almost every morning when he wakes up. States that he will get a drink of water and then vomits. States usually looks like streaks of bright red blood. Up to 50% blood. Has had blood in his stool which looks dark red as well. Admits to recent GERD, but has not taken anything OTC for symptoms. 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 Bleeding mostly from the right nostril. Usually lasts for about 5 minutes. Pinches nose and tilts head back and symptoms stop with only small amount of bleeding. Denies NSAID use, family history of bleeding disorder or coagulopathy, caffeine use, illicit drug use. Past medical history, appointments, medications, allergies reviewed. Previous Medical History PAST MEDICAL HISTORY Diagnosis Date - ADD (attention deficit disorder with hyperactivity) - Migraine - NF (neurofibromatosis) (HCC) - Tobacco use Previous Surgical History PAST SURGICAL HISTORY Procedure Laterality Date - CIRCUMCISION W/CLAMP/OTH DEV W/BLOCK 1998 - ORCHIECTOMY W/ABD EXPLORATION undescended testicle, unilateral orchiectomy Family History FAMILY HISTORY Problem Relation Age of Onset - Heart Paternal Grandmother Heart problems - Heart Father [place] - Hypertension Father - Asthma Father - Diabetes Father - Colon Cancer Father 44 - other (sleep apnea) Father - Cancer Maternal Aunt lung - Diabetes Maternal Aunt Maternal AND Paternal sides - other (Neurofibromytosis) Maternal Aunt Mother, MGM, and 3 siblings - other (Cirrhosis) Maternal Aunt Maternal side - other (neurofibromatosis) Mother - Alcohol/Drug Maternal Grandfather - other (cirrhosis) Maternal Grandfather - COPD Paternal Grandfather Patient Allergies ALLERGIES No Known Allergies Current Medications Current Outpatient Medications on File Prior to Visit Medication Sig - SUMATRIPTAN SUCCINATE (IMITREX ORAL) Take by mouth. - guanFACINE (INTUNIV) 4 mg Tb24 Take 1 tablet by mouth once daily. - dextroamphetamine-amphetamine (ADDERALL XR) 30 mg 24 hr capsule Take 1 capsule by mouth once daily. - CLONIDINE 0.1 MG TAB Take one(1) tablet daily No current facility-administered medications on file prior to visit. Social History Social History Tobacco Use - Smoking status: Former Smoker Years: 1.00 Types: Cigars - Smokeless tobacco: Former User Types: Snuff - Tobacco comment: <1 cigar per day, 1 dip every couple weeks Substance Use Topics - Alcohol use: No - Drug use: No Review of Symptoms REVIEW OF SYSTEMS See HPI EXAM: BP 120/72 Pulse (!) 130 Temp 37 ?C (98.6 ?F) Resp 16 Wt 108.4 kg (239 lb) SpO2 100% General Appearance: Well appearing, alert, in no acute distress, well-hydrated, well nourished.. Skin: Skin color, texture, turgor normal, no suspicious rashes or lesions. Lungs: Lungs clear to auscultation. No wheezing, rhonchi, rales.. Heart: Negative findings: no murmurs, clicks, or gallops, Positive findings: tachycardia. Abdomen: Normal abdominal exam, Abdomen soft, non-tender. Bowel sounds normal. No masses, organomegaly. Extremities: No deformities, edema, skin discoloration, clubbing or cyanosis. Good capillary refill. . Rectal: Negative findings: perianal area normal, anus normal, digital rectal exam negative, anal sphincter tone normal. Health Maintenance List MENINGOCOCCAL B: Consider based on risk(1 of 2 - Risk Bexsero 2-dose series) Never done HPV VACCINE(1 - Male 2-dose series) Never done DEPRESSION SCREENING Never done HEPATITIS C SCREENING Never done HIV SCREENING Never done ONE PNEUMOVAX PRIOR TO AGE 65 Never done INFLUENZA(1) due on 06/24/2021 DTAP,TDAP,TD(7 - Td or Tdap) due on 10/26/2021 COVID-19 VACCINE(3 - Booster for Moderna series) due on 05/01/2022 MENINGOCOCCAL CONJUGATE Completed Data reviewed EKG: Sinus tachycardia at 112 bpm, possible inferior infarct, age undetermined, abnormal EKG ASSES (more content not included)... [facility] Progress note 12-24-2021 Note Date & Type Note Facility 12-24-2021 Note HNO ID: [id number] Author: Gordon Barbosa MD Service: ? Author Type: Physician Type: Progress Notes Filed: 12/24/2021 5:10 PM Note Text: Patient missed appointment time and will need to reschedule to tomorrow. Nurse roomed patient not realizing he was late. VSS. Did not appear in any acute distress per nurse report. [facility] Summary Purpose Family History No Family History Records FoundNo Family History Records FoundNo Family History Records Found Advance Directives No Advanced Directives Records FoundNo Advanced Directives Records FoundNo Advanced Directives Records Found Additional Source Comments (unrecognized sect ion and content) No Status Records FoundNo Status Records FoundNo Status Records Found INFORMATION SOURCE (unrecogn ized section and content) DATE CREATED AUTHOR AUTHOR'S ORGANIZ ATION 06/26/2022 [facility] DATE CREATED AUTHOR AUTHOR'S ORGANIZ ATION 12/08/2022 [facility] Source Comments (unrecognize d section and content) In the event this informatio n is protected by the Federal Confidentiality of Alcohol and Drug Abuse Patient Records regulations: The Federal rules restrict any use of the information to criminally investigate or prosecute any alcohol or drug abuse patient.[facility] Reason for Visit (unrecogniz ed section and content) Care Teams (unrecognized sec tion and content) FOR RECORDS PERTAINING TO PATIENTS WHO ARE OR HAVE BEEN ENROLLED IN A CHEMICAL DEPENDENCY/SUBSTANCEABUSE PROGRAM, SOME INFORMATION MAY BE OMITTED. This clinical summary was aggregated from multiple sources. Caution should be exercised in using it in the provision of clinical care. This summary normalizes information from multiple sources, and as a consequence, information in this document may materially change the coding, format and clinical context of patient data. In addition, data may be omitted in some cases. CLINICAL DECISIONS SHOULD BE BASED ON THE PRIMARY CLINICAL RECORDS. [employer] provides no warranty or guarantee of the accuracy or completeness of information in this document.
--- NOTE | 2023-10-20 18:28 | ED.VIS.CHEST ---
HPI History of Present Illness Chief Complaint: Chest Pain Informant: patient Narrative Narrative: 22-year-old states he was stressed seen because his car broke down and he was not going to be able to get to work in this context, he started having chest discomfort that moved over to the left side . [place] crushing. Almost completely gone right now. Denies any other associated symptoms except for some mild nausea. No dyspnea, nonpleuritic, he states he thinks he has undiagnosed anxiety issues. He denies any recent leg pain or swelling, recent travel out of the area, hospitalization in the last month or 2 although he was hospitalized about 3 months ago, he has not had any surgeries recently. No leg pain or swelling or history of DVT or PE. [facility] Medical History (Updated 10/20/23 @ 18:[address] Peter Roth MD) ADHD Hypertension Learning disability Neurofibromatosis, type 1 Home Medications NK 08/24/23 [History Last Taken Unknown] Allergy/AdvReac Type Severity Reaction Status Date / Time No Known Allergies Allergy Verified 10/20/23 17:10 Family History Father Diabetes Heart disease Mother Heart disease Hypertension Mental disorder Suicide attempt Surgical History No history of previous surgery Social History housing: homeless Smoking Status: Never smoker second hand exposure: Yes alcohol intake: never substance use type: does not use what type of physical activity do you participate in: walking frequency: daily giacomo/roman catholic: Holiness seatbelt use: always ROS ROS ED Constitutional Constitutional ED: Denies chills or fever(s) Eyes Eyes: Denies change in vision or diplopia ENT ENT ED: Denies rhinorrhea or sore throat Cardiovascular Cardiovascular: Reports chest pain; Denies palpitations Respiratory/Chest Respiratory/Chest: Denies cough or dyspnea Gastrointestinal Gastrointestinal: Reports nausea; Denies abdominal pain, diarrhea or vomiting Genitourinary Genitourinary ED: Denies dysuria or hematuria Musculoskeletal Musculoskeletal: Denies back pain or neck pain Integumentary Denies abscess or rash Neurologic Neurologic: Denies headache(s), paresthesias or weakness Psychiatric Psychiatric: Reports anxiety; Denies suicidal thoughts EXAM Physical Exam Const Vital Signs: 10/20/23 17:05 10/20/23 18:52 10/20/23 18:52 Temperature 97.8 F Temperature Source Oral Pulse Rate 89 85 Respiratory Rate 18 20 H Blood Pressure 156/76 H 128/78 H Blood Pressure Mean 102 94 Pulse Ox 96 98 95 Oxygen Delivery Method Room Air Room Air Room Air Positive well nourished and well developed Constitutional Narrative: Will-appearing, using cell phone, legs crossed General Appearance ED: well developed and NAD HEENT Reports moist mucous membranes normocephalic and atraumatic Eyes PERRL and EOMs intact bilaterally Neck full ROM and supple Chest Wall inspection of chest normal and palpation of chest normal Resp normal respiratory effort and clear to auscultation bilaterally Cardio regular rate, regular rhythm and no murmurs Rate: Negative for tachycardic GI non-tender and non-distended Auscultation: normoactive bowel sounds Palpation: soft Back/Spine no CVA tenderness General Back: other FROM Extremity normal to inspection and no calf tenderness General Extremety ED: Negative for edema, pulses abnormal or tenderness General Extremity: Negative for edema or pulses abnormal Neuro oriented x3, CN's II-XII intact bilaterally and no sensory deficits noted Sensorium / Orientation: awake and alert Motor Exam: strength 5/5 throughout Psych mental status grossly normal Skin no rashes or lesions noted and no wounds Heart Score History: Slightly/Non-Suspicious ECG: Normal Age: </= 45 years Risk Factors: 1 or 2 Risk Factors Troponin: </= Normal Limit Score: 1 MDM MDM MDM Narrative Medical decision making narrative: Patient with a normal EKG, 2 sets of negative enzymes, a PERC score of 0 ruling out PE without further workup necessary, 1 view chest x-ray my interpretation normal/negative radiology in agreement, and his discomfort is most gone. He declined an offer for further medication for his discomfort. He is mainly concerned about getting a work note for today. Will do this, reassured patient advised to follow-up we discussed reasons to return. Lab Data Attestation: I reviewed the patient's lab results. Labs: Laboratory Results - last 24 hr 10/20/23 10/20/23 16:55 19:16 WBC 9.6 RBC 4.95 Hgb 14.6 Hct 42.7 MCV 86.3 MCH 29.5 MCHC 34.2 RDW Std Deviation 38.4 RDW Coeff of Swapna 12.3 Plt Count 331 MPV 10.2 Immature Gran % (Auto) 0.300 Neut % (Auto) 58.8 Lymph % (Auto) 29.4 Shackelford % (Auto) 8.7 Eos % (Auto) 2.4 Baso % (Auto) 0.4 Absolute Neuts (auto) 5.6 Absolute Lymphs (auto) 2.82 Nucleated RBC % 0 Sodium 139 Potassium 3.6 Chloride 107 Carbon Dioxide 25.0 Anion Gap 7 BUN 10 Creatinine 0.72 Est GFR (MDRD) Af Amer 171 Est GFR (MDRD) Non-Af 142 BUN/Creatinine Ratio 13.9 Glucose 109 H Calcium 9.3 Troponin I High Sens 5 4 Radiography Diagnostic Testing: Clinical Impression(s) from Imaging Studies Chest X-Ray 10/20/23 17:30 IMPRESSION: No radiographic evidence of acute cardiopulmonary disease. Electronically Signed: Vikki Alvarado MD at 18:08 EST Reading Location ID and State: [id number] / Tel , Service support , Rhythm Strip Rhythm Strip: Sinus Rhythm Rate: 80 Ectopy: None EKG Initial EKG: Attestation: I personally reviewed and interpreted this EKG as follows: Interpretation: Sinus Rhythm and No Acute Injury Pattern Discharge Plan Triage Chief Complaint: Chest Pain ED Provider: Peter Roth Dx/Rx/DC Orders Clinical Impression: Non-cardiac chest pain, Anxiety attack Instructions: ED Chest Pain, Noncardiac Prescriptions: No Action NK Stand Alone Forms: Work / School Excuse Primary Care Provider: Care Physician,No Primary Referrals: Anabella Paul [Non-Staff] - 1-2 Weeks Care Physician,No Primary [Primary Care Provider] - Disposition Disposition: Home, Self Care
[2023-10-20 18:52] VITALS: BP 128/78; PULSE 85; RESP 20; O2SAT 95; O2SAT 98
--- NOTE | 2023-10-20 18:56 | ED.RN ---
PT STATES HE CALLED A TAXI AND FOUND OUT IT WAS GOING TO BE 4 HRS TO GET HOME TO [place] WHERE HE LIVES IN THE GROUP HOME. HE THEN CLLED THE EMS BUT STATES CP WENT AWAY SOON HE GOT TO A ROOM. EXPLAINED THE IMPORTANCE OF NOT USING A SQUAD A TAXI.
[2023-10-20 19:00] LABS: Reflex Troponin-HS? (from REC) Y
[2023-10-20 20:05] LABS: Troponin-I HS 4 pg/mL (3.0-78.0)
[2023-10-20 20:19] VITALS: BP 142/92; RESP 18
== END 2023-10-20 20:19 | disposition home or self-care (01) ==
PROVIDERS: Emergency Provider Emergency Medicine; Visit Provider Emergency Medicine
DX: R07.89 Other chest pain (principal); F41.9 Anxiety disorder, unspecified; Z63.79 Other stressful life events affecting family and household; I10 Essential (primary) hypertension; Z59.00 Homelessness unspecified
CPT/HCPCS: 71045; 80048; 84484; 85025; 93005; 99284; A4216

== ENCOUNTER 2023-11-10 22:49 | Emergency (ER) | payer MEDICAID, SELFPAY ==
[2023-11-10 22:50] VITALS: BP 144/80; PULSE 85; RESP 16; TEMP 36.4; O2SAT 98; BMI 38.7
--- OUTSIDE RECORDS SUMMARY | 2023-11-11 00:06 | XMS RPT_ITS | CCD ---
Author Name Unknown Address [address] [place] [address] Organization [facility] Care Team Providers Care Plastic Manager Name Role Phone LULA RODAS Unavailable Unavailable [...] Provider Facility Start: 12-08-2022 ambulatory ANUPAM RITTER [facility] Start: 07-26-2022 End: 07-26-2022 ambulatory DELMIS GEE [facility] Start: 07-19-2022 End: 07-20-2022 Emergency department patient visit HASMUKH TUTTLE DOS%FRANCINE [facility] Start: 01-30-2022 End: 01-31-2022 Emergency department patient visit THEODORA GALE [facility] Start: 01-27-2022 End: 01-27-2022 Emergency department patient visit DR RUBY MOORE [facility] Start: 01-05-2022 Telephone encounter Danny Barbosa MD Work Phone: [facility] Plan of Treatment Date Care Activity Detail Author Start: 06-24-2022 Influenza vaccination INFLUENZA (Sea son Ended) [facility] Start: 05-01-2022 COVID-19 VACCINE (3 - Booster for Moderna series) COVID-19 VACCINE (3 - Booster for Moderna series) [facility] Start: 10-26-2021 Urine microalbumin profile DTA P,TDAP,TD (7 - Td or Tdap) [facility] Start: 2017 ONE PNEUMOVAX PRIOR TO AGE 65 ONE PNEUMOVAX PRIOR TO AGE 65 [facility] Start: 2016 HEPATITIS C SCREENING HEPATITIS C SC GABYNING [facility] Start: 2016 HIV SCREENING HIV SCREENING [facility] Start: 2012 PEDS TO ADULT TRANSI TION ANNUAL ASSESSMENT PEDS TO ADULT TRANSITION ANNUAL ASSESSMENT [facility] Start: 2010 Adult depression scr eening assessment DEPRESSION SCREENING [facility] Start: 2010 PEDS TO ADULT TRANSI TION INITIAL DISCUSSION PEDS TO ADULT TRANSITION INITIAL DISCUSSION [facility] Start: 2009 HPV VACCINE (1 - Mal e 2-dose series) HPV VACCINE (1 - Male 2-dose series) [facility] Start: 2008 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 (1 of 2 - Risk Bexsero 2-dose series) MENINGOCOCCAL B: Consider based on risk (1 of 2 - Risk Bexsero 2-dose series) [facility] Immunizations Immunization Date Immunization Notes Care Provider Tasneem freeman 02-09-2017 meningococcal polysaccharide (groups A, C, Y and W-135) diphtheria toxoid conjugate vaccine (MCV4P) Gordon Barbosa MD Work Phone: [facility] 05-02-2015 meningococcal polysaccharide (groups A, C, Y and W-135) diphtheria toxoid conjugate vaccine (MCV4P) Gordon Barbosa MD Work Phone: [facility] Work Phone: 10-26-2011 influenza virus vaccine, unspecified formulation Gordon Barbosa MD Work Phone: [facility] Work Phone: 10-26-2011 tetanus toxoid, redu amadou diphtheria toxoid, and acellular pertussis vaccine, adsorbed Gordon Barbosa MD Work Phone: [facility] Work Phone: 10-26-2011 varicella virus vaccine Sholai omaira Barbosa MD Work Phone: [facility] Work Phone: 08-02-2008 influenza virus vaccine, live, attenuated, for intranasal use Gordon Barbosa MD Work Phone: [facility] Work Phone: 02-06-2004 diphtheria, tetanus toxoids and acellular pertussis vaccine Gordon Barbosa MD Work Phone: [facility] Work Phone: 02-06-2004 measles, mumps and rubella virus vaccine Gordon Barbosa MD Work Phone: [facility] Work Phone: 02-06-2004 poliovirus vaccine, inactivated Gordon Barbosa MD Work Phone: [facility] Work Phone: 06-04-2000 diphtheria, tetanus toxoids and acellular pertussis vaccine Gordon Barbosa MD Work Phone: [facility] Work Phone: 06-04-2000 haemophilus influenz ae type b vaccine, HbOC conjugate Gordon Barbosa MD Work Phone: [facility] Work Phone: 06-04-2000 poliovirus vaccine, inactivated Gordon Barbosa MD Work Phone: [facility] Work Phone: 12-09-1999 measles, mumps and rubella virus vaccine Gordon Barbosa MD Work Phone: [facility] Work Phone: 12-09-1999 varicella virus vaccine Sholai omaira Barbosa MD Work Phone: [facility] Work Phone: 08-10-1999 hepatitis B vaccine, pediatric or pediatric/adolescent dosage Gordon Barbosa MD Work Phone: [facility] Work Phone: 05-30-1999 diphtheria, tetanus toxoids and acellular pertussis vaccine Gordon Barbosa MD Work Phone: [facility] Work Phone: 05-30-1999 haemophilus influenz ae type b vaccine, HbOC conjugate Gordon Barbosa MD Work Phone: [facility] Work Phone: 03-30-1999 diphtheria, tetanus toxoids and acellular pertussis vaccine Gordon Barbosa MD Work Phone: [facility] Work Phone: 03-30-1999 haemophilus influenz ae type b vaccine, HbOC conjugate Gordon Barbosa MD Work Phone: [facility] Work Phone: 03-30-1999 poliovirus vaccine, inactivated Gordon Barbosa MD Work Phone: [facility] Work Phone: 01-22-1999 diphtheria, tetanus toxoids and acellular pertussis vaccine Gordon Barbosa MD Work Phone: [facility] Work Phone: 01-22-1999 haemophilus influenz ae type b vaccine, HbOC conjugate Gordon Barbosa MD Work Phone: [facility] Work Phone: 01-22-1999 poliovirus vaccine, inactivated Gordon Barbosa MD Work Phone: [facility] Work Phone: 1998 hepatitis B vaccine, pediatric or pediatric/adolescent dosage Gordon Barbosa MD Work Phone: [facility] Work Phone: 1998 hepatitis B vaccine, pediatric or pediatric/adolescent dosage Gordon Barbosa MD Work Phone: [facility] Work Phone: Payers Date Payer Category Payer Medicaid [id number] 2016 Medicaid [employer] [facility] MEDICAID [id number] 2016-Present [phone] [address] [place] [address] Medicaid [id number] 1998 Unknown [id number] 1998 Unknown [id number] 1998 Unknown [id number] 1998 Unknown [id number] 1998 Unknown [id number] 1998 Unknown [id number] 1998 Unknown [id number] 1998 Unknown [id number] 1998 Unknown [id number] 1998 Unknown [id number] Social History Date Type Detail Facility Start: [facility] History of tobacco use Cigar Smoker [facility] Start: 12-24-2021 Tobacco use and exposure Forme r smokeless tobacco user [facility] History of tobacco use Snuff User [facility] Start: 12-25-2021 Alcohol intake 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 Tried calling other number [phone], was told I had the wrong number. [...] for bloody noses. documented in this encounter [facility] Progress note 12-25-2021 Note Date & Type Note Facility 12-25-2021 Note HNO ID: [id number] Author: Gordon Barbosa MD Service: ? Author Type: Physician Type: Progress Notes Filed: 12/28/2021 11:09 AM Note Text: Chief Complaint No chief complaint on file. HPI Bria Drummond is a 21 year old male who presents here today for Above Complaints.. Patient evaluated at [facility] ED on 10/11 for CC nausea with vomiting and hematemesis which started same day. Also admitted to [facility] abdominal pain/cramping and diarrhea. 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 [...] Paternal Grandmother Heart problems - Heart Father DC - Hypertension Father - Asthma Father - [...] abnormal EKG ASSES (more content not included)... [facility] Progress note 12-24-2021 Note Date & Type Note Facility 12-24-2021 Note HNO ID: [id number] Author: Gordon Barbosa MD Service: ? Author Type: Physician Type: Progress Notes Filed: 12/24/2021 5:10 PM Note Text: Patient missed appointment time and will need to reschedule to tomorrow. Nurse roomed patient not realizing he was late. VSS. Did not appear in any acute distress per nurse report. [facility] Summary Purpose Family History No Family History [...] DATE CREATED AUTHOR AUTHOR'S ORGANIZ ATION 06/26/2022 [facility] DATE CREATED AUTHOR AUTHOR'S ORGANIZ ATION 12/08/2022 [facility] Source Comments (unrecognize d section and content) In the event this informatio n is protected by the Federal Confidentiality of Alcohol and Drug Abuse Patient Records regulations: The Federal rules restrict any use of the information to criminally investigate or prosecute any alcohol or drug abuse patient.[facility] Reason for Visit (unrecogniz ed section [...] BE BASED ON THE PRIMARY CLINICAL RECORDS. [employer] provides no warranty or guarantee of the accuracy or completeness of information in this document.
--- NOTE | 2023-11-11 00:10 | RAD_ITS ---
EXAM: XR Ribs Unilateral W/ PA Chest Min 3 Views INDICATION: Male, 22 years old. Posttraumatic right chest wall pain. TECHNIQUE: 3 views of the right ribs with PA view chest COMPARISON: None FINDINGS: BONES: No acute rib fracture. No lytic or blastic lesion.. CHEST: No confluent pulmonary infiltrate. No pleural effusion or pneumothorax. Cardiac and mediastinal silhouettes are within normal limits. SOFT TISSUES: No soft tissue abnormality. RAD/Ribs Uni Min 3V w/PA Chest IMPRESSION: No acute abnormality of the right ribs or chest Electronically Signed: Palomo Perkins MD at 1:09 EST ,
--- NOTE | 2023-11-11 00:10 | CT_ITS ---
STUDY: CT BRAIN WITHOUT CONTRAST REASON FOR EXAM: Male, 22 years old. Posttraumatic headache RADIATION DOSAGE (If Supplied By Facility): CTDIvol = ( 44.99 ) mGy, DLP = ( 846.73 ) mGycm TECHNIQUE: Transaxial CT imaging of the brain was performed without administration of intravenous contrast material. Individualized dose optimization techniques were used for this CT. COMPARISON: No relevant priors. FINDINGS: Normal soft tissue structures. Normal calvarium. Normal size ventricles and extra-axial spaces for the patient''s age. Normal white matter tracts of the cerebral hemispheres. Normal basal ganglia and thalami. Normal brainstem. Normal cerebellum. There is no intracranial hemorrhage. There are no findings of an acute ischemic infarction. There is mild mucoperiosteal thickening of the paranasal sinuses. CT/Brain/Head without Contrast IMPRESSION: 1. No acute intracranial abnormality. 2. Mild chronic paranasal sinus disease. Electronically Signed: Palomo Perkins MD at 0:44 EST ,
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
[2023-11-11] MEDS: Ondansetron ODT 4 MG Tablet PO (00:38)
[2023-11-11] MEDS: Acetaminophen 500 MG Tablet 1000 MG PO (00:38)
== END 2023-11-11 01:21 | disposition home or self-care (01) ==
PROVIDERS: Emergency Provider Emergency Medicine; Visit Provider Emergency Medicine
DX: S06.0X0A Concussion without loss of consciousness, initial encounter (principal); Z59.00 Homelessness unspecified; R11.0 Nausea; S20.211A Contusion of right front wall of thorax, initial encounter; I10 Essential (primary) hypertension; V43.62XA Car passenger injured in collision with other type car in traffic accident, initial encounter
CPT/HCPCS: 70450; 71101; 99282

== ENCOUNTER 2023-12-12 02:13 | Emergency (ER) | payer MEDICAID, SELFPAY ==
[2023-12-12 02:13] VITALS: BP 139/84; PULSE 88; RESP 19; TEMP 36.6; O2SAT 99; BMI 38.5
--- NOTE | 2023-12-12 02:20 | EDS_ITS ---
HPI History of Present Illness Chief Complaint: Chest Pain Informant: patient Onset/Context/Timing Onset: Today Activity at onset: sudden Timing: Continuous Quality: Positive for Pressure and - (Crushing) Location: Substernal Worsened By: Nothing Relieved By: Nothing Associated Symptoms: Positive for Diaphoresis, Dyspnea, Cough, Lightheadedness and Palpitations; Negative for Nausea, Vomiting, Fever or Acid Reflux Narrative Narrative: Patient presents with chest pain that began this morning. Patient states it woke him up out of his sleep. Patient describes his pain as crushing. Patient states it is over the substernal area. Patient states nothing makes it better nothing makes it worse. Patient admits to some shortness of breath with it. Patient also admits to some diaphoresis and lightheadedness. Patient admits to a cough but denies any sputum production. Patient denies any fevers or chills. CVD Risk Factors: Negative for Hypertension, Diabetes, Hypercholesterolemia, Family History 1' </=55 or Smoking PE Risk Factors: Negative for Recent Travel/Surgery, Recent Immobilization, Prior DVT or PE, Cancer or OCP + Smoking + >/=35 PFSH PFSH Medical History ADHD Hypertension Learning disability Neurofibromatosis, type 1 Home Medications NK 12/12/23 [History Last Taken Unknown] Allergy/AdvReac Type Severity Reaction Status Date / Time No Known Allergies Allergy Verified 12/12/23 02:13 Family History Father Diabetes Heart disease Mother Heart disease Hypertension Mental disorder Suicide attempt Surgical History No history of previous surgery Social History housing: homeless Smoking Status: Current every day smoker tobacco type: e-cigarettes second hand exposure: Yes alcohol intake: never substance use type: does not use what type of physical activity do you participate in: walking frequency: daily 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 seatbelt use: always ROS ROS ED Constitutional Constitutional ED: Denies chills or fever(s) Eyes Eyes: Denies blurry vision or change in vision ENT ENT ED: Denies rhinorrhea or sore throat Cardiovascular Cardiovascular: Reports chest pain and palpitations Respiratory/Chest Respiratory/Chest: Reports cough and dyspnea Gastrointestinal Gastrointestinal: Denies nausea or vomiting Genitourinary Genitourinary ED: Denies dysuria or hematuria Musculoskeletal Musculoskeletal: Denies back pain or neck pain Integumentary Denies abscess or rash Neurologic Neurologic: Denies headache(s) or weakness Allergic/Immunologic Allergic/Immunologic ED: Denies mouth swelling or urticaria EXAM Physical Exam Const Vital Signs: 12/12/23 02:13 12/12/23 02:13 12/12/23 02:54 Temperature 97.8 F Temperature Source Temporal Pulse Rate 88 Respiratory Rate 19 H Respiratory Effort Normal Non-Labored Blood Pressure 139/84 H Blood Pressure Mean 102 Pulse Ox 99 99 Oxygen Delivery Method Room Air Room Air Positive well nourished, well developed and obese General Appearance ED: well developed and NAD Nutritional Appearance: obese HEENT Reports moist mucous membranes Neck supple and no JVD Chest Wall inspection of chest normal and palpation of chest normal Resp normal respiratory effort and clear to auscultation bilaterally Cardio regular rate and regular rhythm GI soft to palpation, non-tender and non-distended Extremity normal to inspection General Extremety ED: Negative for edema or tenderness General Extremity: Negative for edema Neuro oriented x3, CN's II-XII intact bilaterally and no sensory deficits noted Sensorium / Orientation: awake and alert Motor Exam: strength 5/5 throughout Psych mental status grossly normal Heart Score History: Slightly/Non-Suspicious ECG: Nonspecific Repolarization Age: </= 45 years Risk Factors: No Risk Factors Score: 1 MDM MDM MDM Narrative Medical decision making narrative: Differential diagnosis includes cardiac dysrhythmia, cardiac ischemia, pneumonia, pneumothorax, electrolyte abnormality, musculoskeletal pain, GERD, and anxiety. EKG will be obtained to assess for cardiac dysrhythmia and cardiac ischemia. Chest x-ray will be obtained to assess for pneumonia and pneumothorax. CBC will be obtained to assess for leukocytosis and anemia. Basic metabolic profile will be obtained to assess for electrolyte abnormality and renal function. High-sensitivity troponin will be obtained to assess for cardiac ischemia. 2-hour repeat high-sensitivity troponin will be obtained to assess for ongoing cardiac ischemia. Lab Data Attestation: I reviewed the patient's lab results. Lab results narrative: CBC was reviewed and was within normal limits. Basic metabolic profile was reviewed and was within normal limits. High-sensitivity troponin was reviewed and was normal at 5. 2-hour repeat high-sensitivity troponin was reviewed and was normal at 4. Labs: Laboratory Results - last 24 hr 12/12/23 12/12/23 02:52 04:57 WBC 10.8 RBC 5.01 Hgb 14.5 Hct 42.9 MCV 85.6 MCH 28.9 MCHC 33.8 RDW Std Deviation 38.7 RDW Coeff of Swapna 12.6 Plt Count 319 MPV 10.1 Immature Gran % (Auto) 0.300 Neut % (Auto) 62.6 Lymph % (Auto) 25.8 Buchanan % (Auto) 8.9 Eos % (Auto) 1.8 Baso % (Auto) 0.6 Absolute Neuts (auto) 6.8 Absolute Lymphs (auto) 2.80 Nucleated RBC % 0 Sodium 140 Potassium 3.5 Chloride 111 H Carbon Dioxide 23.0 Anion Gap 6 BUN 12 Creatinine 0.55 L Estim Creat Clear Calc 244.81 Est GFR (MDRD) Af Amer 235 Est GFR (MDRD) Non-Af 194 BUN/Creatinine Ratio 22.0 H Glucose 113 H Calcium 9.2 Troponin I High Sens 5 4 Radiography Chest X-Ray - ED: 2 View, Read by ED Physician and Read by Radiologist Diagnostic Testing: Clinical Impression(s) from Imaging Studies Chest X-Ray 12/12/23 02:41 IMPRESSION: No radiographic evidence of acute cardiopulmonary disease. Electronically Signed: John Rojas MD at 3:17 EST Reading Location ID and State: [facility] / ID , Service support , [place] and lateral chest x-ray was obtained. There are 2 views. On my independent interpretation, lung guthrie are clear. There is normal cardiac silhouette. Bony thorax is normal. There is no acute process noted. Radiologist also interpreted the x-ray and agrees. EKG Initial EKG: Attestation: I personally reviewed and interpreted this EKG as follows: Interpretation: Sinus Rhythm (90) and Non-Specific ST Changes Comments: EKG was obtained. On my independent interpretation, it showed a normal sinus rhythm with a rate of 90. NE interval, QRS interval, and QTc intervals were all normal. [place] was normal. There are nonspecific ST-T wave changes. Prior EKG tracings: available for review Prior: Unchanged (10/20/2023) Treatment and Re-Evaluation :: Patient was given aspirin. Patient was feeling better on reevaluation. Patient was advised of his findings. Patient has a HEART score of 1. Patient was advised that this is low risk for acute cardiac event. Patient was instructed to follow-up with his primary care physician in 5 to 7 days for further evaluation. Patient understood and was agreeable with the plan. All questions were answered. Discharge Plan Triage Chief Complaint: Chest Pain ED Provider: Mariusz Jean Dx/Rx/DC Orders Clinical Impression: Chest pain of uncertain etiology, Hypertension Instructions: ED Chest Pain, Uncertain Cause Prescriptions: No Action NK Primary Care Provider: Care Physician,No Primary Referrals: Isidro Bernabe MD [Med Staff - Cloth Wire Weaver] - 5-7 Days Care Physician,No Primary [Primary Care Provider] - Disposition Disposition: Home, Self Care
--- OUTSIDE RECORDS SUMMARY | 2023-12-12 02:33 | XMS RPT_ITS | CCD ---
Author Name Unknown Address [address] [place] [address] Organization [facility] Care Team Providers Care Cartridge Belt Puncher Name Role Phone LULA RODAS Unavailable Unavailable PHYSICIAN, NONE Unavailable Unavailable TRESA KIRK Unavailable Unavailable PHYSICIAN, NONE Unavailable Unavailable DANYA GALLARDO Unavailable Unavailable PHYSICIAN, NONE Unavailable Unavailable ERIC OSUNA Unavailable Unavailable PHYSICIAN, NONE Unavailable Unavailable VIVEK RODAS Unavailable Unavailable GORDON BEATTY Unavailable Unavailable VIVEK RODAS Unavailable Unavailable GORDON BEATTY Unavailable Unavailable Gordon Beatty MD Primary Care Provider Gordon Beatty MD Primary Care Provider ANUPAM RITTER Attending Unavailable ANUPAM RITTER Primary Care Unavailable ANUPAM RITTER Admitting Unavailable GORDON BEATTY Primary Care Unavailab VINCENT Betts Attending Unavailable Medications Current Medications Medication Drug Class(es) Dates Sig (Normalized) Sig (Original) perflutren lipid microspheres 1.3 mL in NaCl (PF) 0.9% 10 mL injection (DEFINITY) (1 source) Start: 12-25-2021 End: 03-26-2023 perflutren lipid microspheres 1.3 mL in NaCl (PF) 0.9% 10 mL injection (DEFINITY) 125 ml sodium chloride 9 mg/ml prefilled syringe (1 source) Start: 12-25-2021 End: 03-26-2023 sodium chloride 0.9 % (flush) 10 mL (BD POSIFLUSH) Completed/Discontinued Medications Medication Drug Class(es) Dates Sig (Normalized) Sig (Original) 24 hr amphetamine aspartate 7.5 mg / amphetamine sulfate 7.5 mg / dextroamphetamine saccharate 7.5 mg / dextroamphetamine sulfate 7.5 mg extended release oral capsule (2 sources) Central Nervous System Stimulant Start: 05-02-2015 End: 12-05-2023 take 1 capsule by mouth once daily dextroamphetamine- amphetamine (ADDERALL XR) 30 mg 24 hr capsule Indications: ADHD (attention deficit hyperactivity disorder) Take 1 capsule by mouth once daily. 30 capsule 0 05/02/2015 12/05/2023 Discontinued (Discontinued by Patient) Problems Problem Classification Problem Date Documented Date Episodic/Chronic Attention-deficit, conduct, and disruptive behavior disorders (2 sources) Attention deficit hyperactivity disorder; Translations: [Attention deficit disorder with hyperactivity] Onset: 10-26-2011 10-19-2021 Chronic Attention-deficit, conduct, and disruptive behavior disorders (1 source) Attention-deficit hyperactivity disorder, unspecified type; Translations: [Attention-deficit hyperactivity disorder, unspecified type] Onset: 12-08-2023 Chronic Headache; including migraine (2 sources) Migraine; Translations: [Migraine, unspecified, not intractable, without status migrainosus] 02-09-2017 Chronic Nervous system congenital anomalies (2 sources) Neurofibromatosis syndrome; 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, unspecified] Onset: 09-03-2009 10-19-2021 Chronic Other screening for suspected conditions (not mental disorders or infectious disease) (3 sources) Patient encounter status; Translations: [Encounter for screening for lipoid disorders] Onset: 12-05-2023 12-05-2023 Episodic Screening and history of mental health and substance abuse codes (1 source) Encounter for screening for depression; Translations: [Screening for depression] Onset: 12-05-2023 Episodic Results Test Name Value Interpretation Reference Range Facil ity Vital Signs Date Time Vital Sign Value Performing Clinician Jackie joya 12-05-2023 10:02-0500 Body height 168.2 cm Vincent Yousif APRN.JENNIFER Work Phone: [facility] 12-05-2023 10:02-0500 Body weight 111.4 kg Vincent Gibbonslogjaky PREFABRICATORNIKKO Work Phone: [facility] 12-05-2023 10:02-0500 Diastolic blood pressure 70 mm[Hg] Vincent Yousif APRNNIKKO Work Phone: [facility] 12-05-2023 10:02-0500 Heart rate 106 /min Vincent Podlogar PREFABRICATOR.TOOL DESIGN DRAFTSPERSON Work Phone: [facility] 12-05-2023 10:02-0500 Respiratory rate 18 /min Vincent Podlogar PREFABRICATOR.TOOL DESIGN DRAFTSPERSON Work Phone: [facility] 12-05-2023 10:02-0500 SaO2% (BldA) [Mass fraction] 94 % Vincent Podlogar PREFABRICATOR.TOOL DESIGN DRAFTSPERSON Work Phone: [facility] 12-05-2023 10:02-0500 Systolic blood pressure 122 mm[Hg] Vincent Podlogar PREFABRICATOR.TOOL DESIGN DRAFTSPERSON Work Phone: [facility] Encounters Encounter Date Encounter Type Care Provider Facility Start: 12-08-2023 End: 12-08-[address] [facility] Start: 12-05-2023 End: 12-06-2023 ambulatory GORDON BEATTY Facility:[facility] Start: 12-05-2023 Patient encounter procedure VINCENT PODLOGAR [facility] Start: 12-05-2023 End: 12-05-2023 Patient encounter procedure Vincent Podlogar PREFABRICATOR.TOOL DESIGN DRAFTSPERSON Work Phone: [facility] Plan of Treatment Date Care Activity Detail Author Start: 09-07-2028 Urine microalbumin profile DTa P,Tdap,Td Vaccine (8 - Td or Tdap) [facility] Start: 12-05-2024 Covid-19 Vaccine ( season) Covid-19 Vaccine ( season) [facility] Immunizations Immunization Date Immunization Notes Care Provider Fa pete 07-20-2022 influenza virus vaccine, unspecified formulation Vincent Podlogar PREFABRICATOR.TOOL DESIGN DRAFTSPERSON Work Phone: [facility] 02-09-2017 meningococcal polysaccharide (groups A, C, Y and W-135) diphtheria toxoid conjugate vaccine (MCV4P) Gordon Beatty MD Work Phone: [facility] 05-02-2015 meningococcal polysaccharide (groups A, C, Y and W-135) diphtheria toxoid conjugate vaccine (MCV4P) Gordon Beatty MD Work Phone: [facility] Work Phone: 10-26-2011 influenza virus vaccine, unspecified formulation Gordon Beatty MD Work Phone: [facility] Work Phone: 10-26-2011 tetanus toxoid, redu amadou diphtheria toxoid, and acellular pertussis vaccine, adsorbed Gordon Beatty MD Work Phone: [facility] Work Phone: 10-26-2011 varicella virus vaccine Sholai omaira Beatty MD Work Phone: [facility] Work Phone: 08-02-2008 influenza virus vaccine, live, attenuated, for intranasal use Gordon Beatty MD Work Phone: [facility] Work Phone: 02-06-2004 diphtheria, tetanus toxoids and acellular pertussis vaccine Gordon Beatty MD Work Phone: [facility] Work Phone: 02-06-2004 measles, mumps and rubella virus vaccine Gordon Beatty MD Work Phone: [facility] Work Phone: 02-06-2004 poliovirus vaccine, inactivated Gordon Beatty MD Work Phone: [facility] Work Phone: 06-04-2000 diphtheria, tetanus toxoids and acellular pertussis vaccine Gordon Beatty MD Work Phone: [facility] Work Phone: 06-04-2000 haemophilus influenz ae type b vaccine, HbOC conjugate Gordon Beatty MD Work Phone: [facility] Work Phone: 06-04-2000 poliovirus vaccine, inactivated Gordon Beatty MD Work Phone: [facility] Work Phone: 12-09-1999 measles, mumps and rubella virus vaccine Gordon Beatty MD Work Phone: [facility] Work Phone: 12-09-1999 varicella virus vaccine Juan Carlos Beatty MD Work Phone: [facility] Work Phone: 08-10-1999 hepatitis B vaccine, pediatric or pediatric/adolescent dosage Gordon Beatty MD Work Phone: [facility] Work Phone: 05-30-1999 diphtheria, tetanus toxoids and acellular pertussis vaccine Gordon Beatty MD Work Phone: [facility] Work Phone: 05-30-1999 haemophilus influenz ae type b vaccine, HbOC conjugate Gordon Beatty MD Work Phone: [facility] Work Phone: 03-30-1999 diphtheria, tetanus toxoids and acellular pertussis vaccine Gordon Beatty MD Work Phone: [facility] Work Phone: 03-30-1999 haemophilus influenz ae type b vaccine, HbOC conjugate Gordon Beatty MD Work Phone: [facility] Work Phone: 03-30-1999 poliovirus vaccine, inactivated Gordon Beatty MD Work Phone: [facility] Work Phone: 01-22-1999 diphtheria, tetanus toxoids and acellular pertussis vaccine Gordon Beatty MD Work Phone: [facility] Work Phone: 01-22-1999 haemophilus influenz ae type b vaccine, HbOC conjugate Gordon Beatty MD Work Phone: [facility] Work Phone: 01-22-1999 poliovirus vaccine, inactivated Gordon Beatty MD Work Phone: [facility] Work Phone: 1998 hepatitis B vaccine, pediatric or pediatric/adolescent dosage Gordon Beatty MD Work Phone: [facility] Work Phone: 1998 hepatitis B vaccine, pediatric or pediatric/adolescent dosage Gordon Beatty MD Work Phone: [facility] Work Phone: Payers Date Payer Category Payer Medicaid [facility] MEDIC AID [facility] MEDICAID [id number] 2022-Present [phone] [address] [place] [address] Medicaid [id number] 2022 Medicaid [id number] 2017 Medicaid [id number] 2016 Medicaid [facility] MEDIC AID [employer] MEDICAID [id number] 2016-Present [phone] [address] [place] [id number] Medicaid [id number] 1998 Unknown [id number] 1998 Unknown [id number] 1998 Unknown [id number] 1998 Unknown [id number] 1998 Unknown [id number] 1998 Unknown [id number] Social History Date Type Detail Facility Start: 12-24-2021 End: 12-05-2023 Tobacco smoking status NHIS Ex-smoker [facility] History of tobacco use Cigar Smoker [facility] Start: 12-24-2021 End: 12-05-2023 Tobacco use and exposure Former smokeless tobacco user [facility] History of tobacco use Snuff User [facility] Start: 12-25-2021 End: 12-05-2023 Alcohol intake Current non-drinker of alcohol (finding) [facility] Start: 02-09-2017 End: 12-05-2023 Tobacco Comment <1 cigar per day, 1 dip every couple weeks [facility] Start: 1998 Sex Assigned At Not on file [facility] Start: 11-25-2021 End: 12-25-2021 Exposure to SARS-CoV-2 (event) Not sure [facility] History of tobacco use Current smoker [facility] Start: 11-30-2023 End: 12-05-2023 History of Social function [facility] Work Phone: Start: 11-30-2023 End: 12-05-2023 Tobacco use panel [facility] Work Phone: Adult Depression Screening Assessment 0 [facility] Work Phone: Progress note 12-05-2023 Note Date & Type Note Facility 12-05-2023 Note HNO ID: [id number] Author: VINCENT YOUSIF APRN.TOOL DESIGN DRAFTSPERSON Service: ? Author Type: Nurse Practitioner Type: Progress Notes Filed: 12/05/2023 10:24 Note Text: 12/05/2023 Patient presents with: Physical SUBJECTIVE: This is a 23 year old that is here today for Above Complaints. Since last office appointment has bee in good health without ER visits or hospitalizations. No concerns today. Walks daily. Currently homeless. Not currently employed. Staying at [employer]. Working with [employer] for employment. Past medical, surgical, family, social hx, medications, allergies and health maintenance reviewed and updated. PAST MEDICAL HISTORY Diagnosis Date ADD (attention deficit disorder with hyperactivity) Migraine NF (neurofibromatosis) (HCC) Tobacco use ALLERGIES Patient has no known allergies. MEDICATIONS No current outpatient medications on file. No current facility-administered medications for this visit. Medications and allergies reviewed by this provider. SOCIAL HISTORY Social History Tobacco Use Smoking status: Former Types: Cigars Smokeless tobacco: Former Types: Snuff Tobacco comments: <1 cigar per day, 1 dip every couple weeks Substance Use Topics Alcohol use: No Drug use: No REVIEW OF SYSTEMS GENERAL: No weight loss, malaise or fevers HEENT: Negative for frequent or significant headaches, No changes in hearing or vision, no nose bleeds or other nasal problems NECK: Negative for lumps, goiter, pain and significant neck swelling RESPIRATORY: Negative for cough, hemoptysis, wheezing, COPD, dyspnea or shortness of breath CARDIOVASCULAR: Negative for chest pain, leg swelling, hypertension, CHF or palpitations GI: No nausea, vomiting, or diarrhea : No history of dysuria, frequency or incontinence MUSCULOSKELETAL: Negative for joint pain or swelling, back pain or muscle pain SKIN: Negative for lesions, rash, and itching PSYCH: Negative for sleep disturbance, mood disorder and recent psychosocial stressors HEMATOLOGY/LYMPHOLOGY: Negative for prolonged bleeding, bruising easily or swollen nodes ENDOCRINE: Negative for cold or heat intolerance, polyuria, polydipsia and goiter NEURO: No history of headaches, syncope, paralysis, seizures or tremors All other reviewed and negative other than HPI. OBJECTIVE: BP 122/70 Pulse 106 Resp 18 Ht 168.2 cm (5' 6.22 ) Wt 111.4 kg (245 lb 9.6 oz) SpO2 94% BMI 39.38 kg/m? . Vital signs reviewed by this provider. APPEARANCE Well appearing, alert, in no acute distress, well-hydrated, well nourished. EYES conjunctiva and sclera normal. EARS External ears normal, canals clear NECK Supple, no adenopathy; thyroid symmetric, normal size, no bruits HEART RRR with normal S1 and S2, no murmurs, no gallops, no JVD appreciated LUNG clear to auscultation. No wheezes, rhonchi or rales ABDOMEN bowel sounds normoactive, no bruits, soft, non-tender, non-distended EXTREMITIES Extremities normal, No deformities, No skin discoloration, and No edema SKIN Skin color, texture, turgor normal, no suspicious rashes or lesions to exposed skin Depression Assessment Never done Influenza Vaccine(1) due on 04/22/2024 HPV Vaccine(1 - Male 2-dose series) due on 12/05/2024 Hepatitis C Screening due on 12/05/2024 HIV Screening due on 12/05/2024 Covid-19 Vaccine( - season) due on 12/05/2024 DTaP,Tdap,Td Vaccine(8 - Td or Tdap) due on 09/07/2028 Hepatitis B Vaccine Completed ASSESSMENT/PLAN: 1. Annual physical exam - ICD9: V70.0, ICD10: Z00.00 (primary diagnosis) - Counseled on healthy diet and regular exercise - Discussed need for and benefit of weight loss. BMI 39.38 kg/(m2) - Depression screening tool completed and reviewed with patient. Based on score and interview, patient is not at risk for depression and recommended no further intervention at this time. - Follow up for annual exam in one year - COMP METABOLIC PANEL - CBC 2. Screening for hyperlipidemia - ICD9: V77.91, ICD10: Z13.220 - LIPID PANEL BASIC 3. Screening for depression - ICD9: V79.0, ICD10: Z13.31 - DEPRESSION SCREENING/ASSESSMENT Vincent Yousif APRN.TOOL DESIGN DRAFTSPERSON Prescription instructions reviewed with patient as applicable. Patient advised if symptoms do not improve or if symptoms worsen sooner, to contact their primary care physician. Potential red flag symptoms discussed with the patient. Reviewed appropriate action plan to take if red flag symptoms occur. Patient agreeable to treatment plan. [facility] History of Present illness Narrative 12-05-2023 Vincent Yousif APRN.TOOL DESIGN DRAFTSPERSON - 12/05/2023 9:58 AM EST Note Date & Type Note Facility 12-05-2023 History of Presen t illness Narrative 12/05/2023 Patient presents with: Physical SUBJECTIVE: This is a 23 year old that is here today for Above Complaints. Since last office appointment has bee in good health without ER visits or hospitalizations. No concerns today. Walks daily. Currently homeless. Not currently employed. Staying at [employer]. Working with [employer] for employment. Past medical, surgical, family, social hx, medications, allergies and health maintenance reviewed and updated. PAST MEDICAL HISTORY Diagnosis Date ADD (attention deficit disorder with hyperactivity) Migraine NF (neurofibromatosis) (HCC) Tobacco use ALLERGIES Patient has no known allergies. MEDICATIONS No current outpatient medications on file. No current facility-administered medications for this visit. Medications and allergies reviewed by this provider. SOCIAL HISTORY Social History Tobacco Use Smoking status: Former Types: Cigars Smokeless tobacco: Former Types: Snuff Tobacco comments: <1 cigar per day, 1 dip every couple weeks Substance Use Topics Alcohol use: No Drug use: No REVIEW OF SYSTEMS GENERAL: No weight loss, malaise or fevers HEENT: Negative for frequent or significant headaches, No changes in hearing or vision, no nose bleeds or other nasal problems NECK: Negative for lumps, goiter, pain and significant neck swelling RESPIRATORY: Negative for cough, hemoptysis, wheezing, COPD, dyspnea or shortness of breath CARDIOVASCULAR: Negative for chest pain, leg swelling, hypertension, CHF or palpitations GI: No nausea, vomiting, or diarrhea : No history of dysuria, frequency or incontinence MUSCULOSKELETAL: Negative for joint pain or swelling, back pain or muscle pain SKIN: Negative for lesions, rash, and itching PSYCH: Negative for sleep disturbance, mood disorder and recent psychosocial stressors HEMATOLOGY/LYMPHOLOGY: Negative for prolonged bleeding, bruising easily or swollen nodes ENDOCRINE: Negative for cold or heat intolerance, polyuria, polydipsia and goiter NEURO: No history of headaches, syncope, paralysis, seizures or tremors All other reviewed and negative other than HPI. OBJECTIVE: BP 122/70 Pulse 106 Resp 18 Ht 168.2 cm (5' 6.22 ) Wt 111.4 kg (245 lb 9.6 oz) SpO2 94% BMI 39.38 kg/m . Vital signs reviewed by this provider. APPEARANCE Well appearing, alert, in no acute distress, well-hydrated, well nourished. EYES conjunctiva and sclera normal. EARS External ears normal, canals clear NECK Supple, no adenopathy; thyroid symmetric, normal size, no bruits HEART RRR with normal S1 and S2, no murmurs, no gallops, no JVD appreciated LUNG clear to auscultation. No wheezes, rhonchi or rales ABDOMEN bowel sounds normoactive, no bruits, soft, non-tender, non-distended EXTREMITIES Extremities normal, No deformities, No skin discoloration, and No edema SKIN Skin color, texture, turgor normal, no suspicious rashes or lesions to exposed skin Depression Assessment Never done Influenza Vaccine(1) due on 04/22/2024 HPV Vaccine(1 - Male 2-dose series) due on 12/05/2024 Hepatitis C Screening due on 12/05/2024 HIV Screening due on 12/05/2024 Covid-19 Vaccine(2022- season) due on 12/05/2024 DTaP,Tdap,Td Vaccine(8 - Td or Tdap) due on 09/07/2028 Hepatitis B Vaccine Completed ASSESSMENT/PLAN: 1. Annual physical exam - ICD9: V70.0, ICD10: Z00.00 (primary diagnosis) - Counseled on healthy diet and regular exercise - Discussed need for and benefit of weight loss. BMI 39.38 kg/(m^2) - Depression screening tool completed and reviewed with patient. Based on score and interview, patient is not at risk for depression and recommended no further intervention at this time. - Follow up for annual exam in one year - COMP METABOLIC PANEL - CBC 2. Screening for hyperlipidemia - ICD9: V77.91, ICD10: Z13.220 - LIPID PANEL BASIC 3. Screening for depression - ICD9: V79.0, ICD10: Z13.31 - DEPRESSION SCREENING/ASSESSMENT Vincent Yousif APRN.JENNIFER Prescription instructions reviewed with patient as applicable. Patient advised if symptoms do not improve or if symptoms worsen sooner, to contact their primary care physician. Potential red flag symptoms discussed with the patient. Reviewed appropriate action plan to take if red flag symptoms occur. Patient agreeable to treatment plan. documented in this encounter [facility] Note 01-06-2022 Telephone Encounter - Ioana Tamayo Ma - 01/06/2022 1:49 PM EDTTelephone Encounter - Zoe Gasca Ma - 01/06/2022 11:37 AM EDTTelephone Encounter - Ioana Tamayo Ma - 01/05/2022 4:42 PM EDT Note Date & Type Note Facility 01-06-2022 Miscellaneous Notes No pt needs notified of results. This was a result note which I switched to phone note. I called pt line kb fast busy. Tried calling other number [phone], was told I had the wrong number. Letter mailed to pt home to call office back for results. Ioana Tamayo Ma Felicia - pt was notified per result note, is that correct? Before I close encounter. Zoe Gasca Ma ----- Message from Gordon Beatty MD sent at 01/05/2022 3:31 PM EDT [...] for bloody noses. documented in this encounter [facility] Evaluation note Note Date & Type Note Facility documented in this encounter [facility] Summary Purpose Family History No [...] content) DATE CREATED AUTHOR AUTHOR'S ORGANIZ ATION 12/10/2023 [facility] DATE CREATED AUTHOR AUTHOR'S ORGANIZ ATION 12/10/2023 [facility] Source Comments (unrecognize d section and content) In the event this informatio n is protected by the Federal Confidentiality of Alcohol and Drug Abuse Patient Records regulations: The Federal rules restrict any use of the information to criminally investigate or prosecute any alcohol or drug abuse patient.[facility] the event this information is protected by the Federal Confidentiality of Alcohol and Drug Abuse Patient Records regulations: The Federal rules restrict any use of the information to criminally investigate or prosecute any alcohol or drug abuse patient.[facility] Reason for Visit (unrecogniz ed section and content) Reason Comments Physical Care Teams (unrecognized sec tion and content) Cartridge Belt Puncher Relationship Specialty Start Date End Date Gordon Beatty MD [address] [place] [address] PCP - General Family Medicine 02/09/17 FOR RECORDS PERTAINING TO PATIENTS WHO ARE [...] BE BASED ON THE PRIMARY CLINICAL RECORDS. [facility] [employer] [facility]. provides no warranty or guarantee of the accuracy or completeness of information in this document.
--- NOTE | 2023-12-12 02:41 | EKG12_ITS ---
Test Reason : CP Blood Pressure : / mmHG Vent. Rate : 090 BPM Atrial Rate : 090 BPM P-R Int : 164 ms QRS Dur : 094 ms QT Int : 376 ms P-R-T Axes : -07 -10 009 degrees QTc Int : 459 ms Normal sinus rhythm Inferior infarct , age undetermined Abnormal ECG Confirmed by MANJINDER TUTTLE, AILIN ([id number]), continuity editor HASMUKH CONNER ([id number]) on 12/12/2023 10:24:49 AM Referred By: DEMETRIUS Confirmed By:AILIN DUNBAR MD
--- NOTE | 2023-12-12 02:41 | RAD_ITS ---
EXAM: XR CHEST, 2 VIEWS CLINICAL INDICATION: chest pain chest pain TECHNIQUE: Frontal and lateral views of the chest. COMPARISON: Chest x-ray 11/11/2023. FINDINGS: LUNGS AND PLEURAL SPACES: Unremarkable. No consolidation or edema. No pneumothorax. No effusion. HEART: Unremarkable. Cardiac silhouette not enlarged. MEDIASTINUM: Central airways and mediastinal contour are unremarkable. BONES/JOINTS: Unremarkable. No acute fracture. SOFT TISSUES: Unremarkable. RAD/Chest PA and Lateral IMPRESSION: No radiographic evidence of acute cardiopulmonary disease. Electronically Signed: John Rojas MD at 3:17 EST Reading Location ID and State: [facility] / [place] , Service support ,
[2023-12-12] MEDS: Aspirin 81 MG TAB.CHEW 324 MG PO (02:51)
[2023-12-12 02:54] VITALS: O2SAT 99
[2023-12-12 02:59] LABS: Absolute Neutrophil Count 6.8 X10^3/uL (2.0-7.7); Basophil# 0.07 X10^3/uL; Basophil% 0.6 % (0-1); Eosinophil# 0.19 X10^3/uL; Eosinophils% 1.8 % (0-5); Hematocrit 42.9 % (40-54); Hemoglobin 14.5 g/dL (13.0-16.5); Lymphocyte % 25.8 % (19-41); Mean Corp Hgb Conc 33.8 g/dL (32-36); Mean Corpuscular Hgb 28.9 pg (27.0-32.0); Mean Corpuscular Volume 85.6 fL (80-94); Mean Platelet Vol. 10.1 fl (6.2-12.0); Monocyte# 0.97 X10^3/uL; Monocyte% 8.9 % (0-10); NRBC Flagged by Analyzer 0 % (0-5); Neutrophil # 6.78 X10^3/uL (2.7-7.7); Neutrophil % 62.6 % (47-70); Platelet Count 319 K/mm3 (150-450); RBC Distribution Width CV 12.6 % (11.6-14.6); RBC Distribution Width SD 38.7 fl (35.1-43.9); Red Blood Count 5.01 M/mm3 (4.6-6.2); White Blood Count 10.8 K/mm3 (4.4-11.0)
[2023-12-12 03:18] LABS: Anion Gap 6 (5-15); BUN 12 mg/dL (7-18); Calcium,Total 9.2 mg/dL (8.5-10.1); Chloride 111 mmol/L (98-107); Creatinine, Serum 0.55 mg/dL (0.70-1.30); EST Glomerular Filtration Rate 194 mL/min (>60); Est Glom Filt Rate - Afr Amer 235 mL/min (>60); Estimated Creatinine Clearance 244.81 ml/min; Glucose 113 mg/dL (74-106); Potassium 3.5 mmol/L (3.5-5.1); Sodium Level 140 mmol/L (136-145); Troponin-I HS (w/2H Reflex) 5 pg/mL (3.0-78.0)
[2023-12-12 04:13] VITALS: BP 124/87; PULSE 102; RESP 16; O2SAT 99
[2023-12-12 04:54] LABS: Reflex Troponin-HS? (from REC) Y
[2023-12-12 06:13] VITALS: BP 129/77; PULSE 101; RESP 16; O2SAT 99
[2023-12-12 06:13] LABS: Troponin-I HS 4 pg/mL (3.0-78.0)
[2023-12-12 06:41] VITALS: BP 129/77; PULSE 101; RESP 16; TEMP 36.4; O2SAT 99
== END 2023-12-12 06:44 | disposition home or self-care (01) ==
PROVIDERS: Emergency Provider Emergency Medicine; Visit Provider Emergency Medicine
DX: R07.9 Chest pain, unspecified (principal); R06.02 Shortness of breath; R00.2 Palpitations; I10 Essential (primary) hypertension; F17.290 Nicotine dependence, other tobacco product, uncomplicated; E66.9 Obesity, unspecified; Z59.00 Homelessness unspecified
CPT/HCPCS: 71046; 80048; 84484; 85025; 93005; 99284; A4216

== ENCOUNTER 2024-03-14 18:29 | Emergency (ER) | payer MEDICAID, SELFPAY ==
[2024-03-14 18:30] VITALS: BP 125/79; PULSE 99; RESP 16; TEMP 36.9; O2SAT 100; BMI 37.5
--- NOTE | 2024-03-14 19:27 | ED.VIS.CHEST ---
HPI History of Present Illness Chief Complaint: Chest Pain Onset/Context/Timing Onset: Today and Hours (1) Activity at onset: gradual Timing: Continuous Quality: Positive for Pressure Location: Left Chest Worsened By: Nothing Relieved By: NSAIDS (Aspirin) Associated Symptoms: Positive for Nausea, Vomiting, Diaphoresis, Dyspnea, Lightheadedness and Palpitations; Negative for Cough, Fever or Acid Reflux Narrative Narrative: Patient presents with chest pain that began approximately 1 hour prior to arrival. Patient states he was at work when this began. Patient states the pain is mainly over the left chest. Patient describes it as a pressure. Patient states nothing makes it worse. Patient states that EMS gave him 4 baby aspirin which helped his pain. Patient admits to some nausea and 1 episode of vomiting. Patient admits to some shortness of breath and diaphoresis. Patient also admits to some lightheadedness and palpitations. CVD Risk Factors: Positive for Family History 1' </=55; Negative for Hypertension, Diabetes, Hypercholesterolemia or Smoking PE Risk Factors: Negative for Recent Travel/Surgery, Recent Immobilization, Prior DVT or PE, Cancer or OCP + Smoking + >/=35 PFSH PFSH Medical History Neurofibromatosis, type 1 Learning disability Hypertension ADHD Home Medications ?Medication ?Instructions ?Recorded ?Last Taken ?Type NK 12/12/23 Unknown History Allergy/AdvReac Type Severity Reaction Status Date / Time No Known Allergies Allergy Verified 03/14/24 18:30 Family History Father Diabetes Heart disease Mother Heart disease Hypertension Mental disorder Suicide attempt Surgical History No history of previous surgery Social History housing: homeless Smoking Status: Former smoker second hand exposure: Yes alcohol intake: never substance use type: does not use what type of physical activity do you participate in: walking frequency: daily giacomo/nondenominational: Gnosticism seatbelt use: always ROS ROS ED Constitutional Constitutional ED: Denies chills or fever(s) Eyes Eyes: Reports blurry vision; Denies diplopia ENT ENT ED: Denies rhinorrhea or sore throat Cardiovascular Cardiovascular: Reports chest pain and palpitations Respiratory/Chest Respiratory/Chest: Reports dyspnea; Denies cough Gastrointestinal Gastrointestinal: Reports nausea and vomiting Genitourinary Genitourinary ED: Denies dysuria or hematuria Musculoskeletal Musculoskeletal: Reports back pain; Denies neck pain Integumentary Denies abscess or rash Neurologic Neurologic: Denies headache(s) or weakness Allergic/Immunologic Allergic/Immunologic ED: Denies mouth swelling or urticaria EXAM Physical Exam Const Vital Signs: 03/14/24 18:30 03/14/24 19:30 03/14/24 19:39 Temperature 98.4 F Temperature Source Oral Pulse Rate 99 79 Respiratory Rate 16 19 H Blood Pressure 125/79 H 105/64 Blood Pressure Mean 94 78 Pulse Ox 100 96 Oxygen Delivery Method Room Air Room Air 03/14/24 20:00 03/14/24 21:00 03/14/24 22:00 Temperature Temperature Source Pulse Rate 82 81 101 H Respiratory Rate 20 H 16 21 H Blood Pressure 112/74 116/66 112/73 Blood Pressure Mean 86 82 86 Pulse Ox 96 97 95 Oxygen Delivery Method Room Air Positive well nourished and well developed General Appearance ED: well developed and NAD HEENT Reports moist mucous membranes Neck supple and no JVD Chest Wall Chest: tenderness pectoral muscle left Resp normal respiratory effort and clear to auscultation bilaterally Cardio regular rate and regular rhythm GI soft to palpation, non-tender and non-distended Neuro oriented x3, CN's II-XII intact bilaterally and no sensory deficits noted Sensorium / Orientation: awake and alert Motor Exam: strength 5/5 throughout Psych mental status grossly normal Heart Score History: Slightly/Non-Suspicious ECG: Normal Age: </= 45 years Risk Factors: 1 or 2 Risk Factors Troponin: </= Normal Limit Score: 1 MDM MDM MDM Narrative Medical decision making narrative: Differential diagnosis includes cardiac dysrhythmia, cardiac ischemia, pneumonia, pneumothorax, pleurisy, electrolyte abnormality, gastroesophageal reflux disease, and anxiety. EKG will be obtained to assess for cardiac dysrhythmia and cardiac ischemia. Chest x-ray will be obtained to assess for pneumonia and pneumothorax. CBC will be obtained to assess for leukocytosis and anemia. Basic metabolic profile will be obtained to assess for electrolyte abnormality and renal function. High-sensitivity troponin will be obtained to assess for cardiac ischemia. 2-hour repeat high-sensitivity troponin will be obtained to assess for ongoing cardiac ischemia. Lab Data Attestation: I reviewed the patient's lab results. Lab results narrative: CBC was reviewed and was within normal limits. Basic metabolic profile was reviewed and was within normal limits. High-sensitivity troponin was reviewed and was less than 3. 2-hour repeat high-sensitivity troponin was reviewed and was less than 3. Labs: Laboratory Results - last 24 hr 03/14/24 03/14/24 18:30 21:47 WBC 10.9 RBC 5.14 Hgb 15.2 Hct 44.2 MCV 86.0 MCH 29.6 MCHC 34.4 RDW Std Deviation 38.1 RDW Coeff of Swapna 12.2 Plt Count 364 MPV 9.9 Immature Gran % (Auto) 0.300 Neut % (Auto) 64.8 Lymph % (Auto) 25.3 [place] % (Auto) 7.2 Eos % (Auto) 1.9 Baso % (Auto) 0.5 Absolute Neuts (auto) 7.1 Absolute Lymphs (auto) 2.76 Nucleated RBC % 0 Sodium 137 Potassium 3.5 Chloride 106 Carbon Dioxide 22.0 Anion Gap 9 BUN 7 Creatinine 0.69 L Estim Creat Clear Calc 192.64 Est GFR (MDRD) Af Amer 179 Est GFR (MDRD) Non-Af 148 BUN/Creatinine Ratio 10.1 Glucose 97 Calcium 9.2 Troponin I High Sens < 3 L < 3 L Radiography Chest X-Ray - ED: 2 View, Read by ED Physician, Read by Radiologist and No Acute Disease Diagnostic Testing: Clinical Impression(s) from Imaging Studies Chest X-Ray 03/14/24 19:40 IMPRESSION: No radiographic evidence of acute cardiopulmonary disease. Electronically Signed: Ross Landry DO at 20:02 EDT , [place] and lateral chest x-ray was obtained. There are 2 views. On my independent interpretation, lung guthrie are clear. There is normal cardiac silhouette. Bony thorax is normal. There is no acute process noted. Radiologist also interpreted the x-ray and agrees. EKG Initial EKG: Attestation: I personally reviewed and interpreted this EKG as follows: Interpretation: Sinus Rhythm (91) and No Acute Injury Pattern Comments: EKG was obtained. On my independent interpretation, it showed a normal sinus rhythm with a rate of 91. [place] interval, QRS interval, and QTc intervals were all normal. There is borderline left axis deviation at -14. There are no acute ST or T wave changes. Prior EKG tracings: available for review Prior: Unchanged (12/12/2023) Treatment and Re-Evaluation :: Patient was advised of his findings. Patient has a HEART score of 1. Patient was advised that this is low risk for acute cardiac event. Patient was instructed to follow-up with his primary care physician in 5 to 7 days for further evaluation. Patient understood and was agreeable with the plan. All questions were answered. Discharge Plan Triage Chief Complaint: Chest Pain ED Provider: Mariusz Jean Dx/Rx/DC Orders Clinical Impression: Chest pain, Hypertension Instructions: ED Chest Pain, Uncertain Cause Prescriptions: No Action NK Primary Care Provider: JOHANNA NEVILEL Referrals: JOHANNA NEVILLE NP-C [Primary Care Provider] - 5-7 Days Print Language: Turkmen Disposition Disposition: Home, Self Care
[2024-03-14 19:30] VITALS: BP 105/64; PULSE 79; RESP 19; O2SAT 96
--- NOTE | 2024-03-14 19:35 | EKG12_ITS ---
Test Reason : CP Blood Pressure : / mmHG Vent. Rate : 091 BPM Atrial Rate : 091 BPM P-R Int : 150 ms QRS Dur : 090 ms QT Int : 358 ms P-R-T Axes : 011 -14 017 degrees QTc Int : 440 ms Normal sinus rhythm CAN NOT RULE OUT Inferior infarct (cited on or before 12-DEC-2023) Abnormal ECG Confirmed by Alberto Saha ([id number]), editor map MOUSTAPHA DEJESUS ([id number]) on 03/15/2024 2:20:37 PM Referred By: DALE Confirmed By:Alberto Saha
--- NOTE | 2024-03-14 19:40 | RAD_ITS ---
INDICATION: chest pain EXAMINATION/TECHNIQUE: X-RAY - XR Chest 2 Views COMPARISON: FINDINGS: LINES/DEVICES: None. LUNGS: No consolidation, edema or effusion. No pneumothorax. MEDIASTINUM AND CARDIOVASCULAR STRUCTURES: Cardiac silhouette not enlarged. Central airways and mediastinal contour are unremarkable. BONES AND SOFT TISSUES: Unremarkable. RAD/Chest PA and Lateral IMPRESSION: No radiographic evidence of acute cardiopulmonary disease. Electronically Signed: Ross Landry DO at 20:02 EDT Reading Location ID and State: [facility] / [place] Tel [phone], Service support ,
[2024-03-14 19:42] LABS: Absolute Lymphocyte Count 2.76 X10^3/uL (0.83-4.51); Absolute Neutrophil Count 7.1 X10^3/uL (2.0-7.7); Basophil# 0.06 X10^3/uL; Basophil% 0.5 % (0-1); Eosinophil# 0.21 X10^3/uL; Eosinophils% 1.9 % (0-5); Hematocrit 44.2 % (40-54); Hemoglobin 15.2 g/dL (13.0-16.5); Lymphocyte # 2.76 X10^3/ul (0.83-4.51); Lymphocyte % 25.3 % (19-41); Mean Corp Hgb Conc 34.4 g/dL (32-36); Mean Corpuscular Hgb 29.6 pg (27.0-32.0); Mean Platelet Vol. 9.9 fl (6.2-12.0); Monocyte# 0.79 X10^3/uL; Monocyte% 7.2 % (0-10); NRBC Flagged by Analyzer 0 % (0-5); Neutrophil # 7.07 X10^3/uL (2.7-7.7); Neutrophil % 64.8 % (47-70); Platelet Count 364 K/mm3 (150-450); RBC Distribution Width CV 12.2 % (11.6-14.6); RBC Distribution Width SD 38.1 fl (35.1-43.9); Red Blood Count 5.14 M/mm3 (4.6-6.2); White Blood Count 10.9 K/mm3 (4.4-11.0)
[2024-03-14 20:00] VITALS: BP 112/74; PULSE 82; RESP 20; O2SAT 96
[2024-03-14 20:01] LABS: Anion Gap 9 (5-15); BUN 7 mg/dL (7-18); BUN/Creat Ratio 10.1 RATIO (10-20); Calcium,Total 9.2 mg/dL (8.5-10.1); Chloride 106 mmol/L (98-107); Creatinine, Serum 0.69 mg/dL (0.70-1.30); EST Glomerular Filtration Rate 148 mL/min (>60); Est Glom Filt Rate - Afr Amer 179 mL/min (>60); Estimated Creatinine Clearance 192.64 ml/min; Glucose 97 mg/dL (74-106); Potassium 3.5 mmol/L (3.5-5.1); Sodium Level 137 mmol/L (136-145); Troponin-I HS (w/2H Reflex) < 3 pg/mL (3.0-78.0)
[2024-03-14 21:00] VITALS: BP 116/66; PULSE 81; RESP 16; O2SAT 97
[2024-03-14 21:40] LABS: Reflex Troponin-HS? (from REC) Y
[2024-03-14 22:00] VITALS: BP 112/73; PULSE 101; RESP 21; O2SAT 95
[2024-03-14 22:19] LABS: Troponin-I HS < 3 pg/mL (3.0-78.0)
[2024-03-14 22:58] VITALS: BP 118/78; PULSE 81; RESP 18; TEMP 36.3; O2SAT 98
== END 2024-03-14 22:59 | disposition home or self-care (01) ==
PROVIDERS: Emergency Provider Emergency Medicine; PCP Nurse Practitioner Family; Visit Provider Emergency Medicine
DX: R07.9 Chest pain, unspecified (principal); Z87.891 Personal history of nicotine dependence; R11.2 Nausea with vomiting, unspecified; I10 Essential (primary) hypertension; R00.2 Palpitations; R06.02 Shortness of breath; Z59.00 Homelessness unspecified; R42 Dizziness and giddiness
CPT/HCPCS: 71046; 80048; 84484; 85025; 93005; 99284; A4216

== ENCOUNTER 2024-03-30 23:12 | Emergency (ER) | payer MEDICAID, SELFPAY ==
[2024-03-30 23:13] VITALS: BP 145/92; PULSE 110; RESP 14; TEMP 36.2; O2SAT 95; BMI 36.6
--- NOTE | 2024-03-30 23:26 | EDS_ITS ---
HPI History of Present Illness Chief Complaint: Head Injury Informant: patient Narrative Narrative: 23-year-old male states that this evening approximately 1 hour prior to evaluation he slipped and fell striking his head on the ground. Initially told triage she did not have a loss of consciousness. He tells me that he may have lost consciousness for few seconds. He states that he saw some white stars in his vision. Patient notes no neck or back pain. No arm or leg symptoms. Patient denies being on any blood thinners. He tells me has a history of hypertension but is unsure of what medications he takes. He denies prior head injury. He notes occipital scalp tenderness. [facility] Medical History Neurofibromatosis, type 1 Learning disability Hypertension ADHD Home Medications ?Medication ?Instructions ?Recorded ?Last Taken ?Type NK 12/12/23 Unknown History Allergy/AdvReac Type Severity Reaction Status Date / Time No Known Allergies Allergy Verified 03/30/24 23:15 Family History Father Diabetes Heart disease Mother Heart disease Hypertension Mental disorder Suicide attempt Surgical History No history of previous surgery Social History housing: homeless Smoking Status: Former smoker second hand exposure: Yes alcohol intake: never substance use type: does not use what type of physical activity do you participate in: walking frequency: daily giacomo/judaism: Zoroastrianism seatbelt use: always ROS ROS ED Constitutional Constitutional ED: Denies chills, fever(s) or weight loss Eyes Eyes: Denies blurry vision, change in vision or diplopia ENT ENT ED: Denies ear pain, rhinorrhea or sore throat Cardiovascular Cardiovascular: Denies chest pain, orthopnea, palpitations or racing heartbeat Respiratory/Chest Respiratory/Chest: Denies cough, dyspnea or orthopnea Gastrointestinal Gastrointestinal: Reports nausea; Denies abdominal pain, diarrhea or vomiting Genitourinary Genitourinary ED: Denies dysuria, hematuria or urinary frequency Musculoskeletal Musculoskeletal: Denies arthralgias, back pain, myalgias or neck pain Integumentary Denies abscess or rash Neurologic Neurologic: Reports headache(s); Denies paresthesias or weakness Psychiatric Psychiatric: Denies anxiety, depression, suicidal ideation or suicidal thoughts Endocrine Endocrinology: Denies polydipsia, polyphagia or polyuria Allergic/Immunologic Allergic/Immunologic ED: Denies mouth swelling, tongue swelling or urticaria EXAM Physical Exam Const Vital Signs: 03/30/24 23:13 Temperature 97.2 F L Temperature Source Temporal Pulse Rate 110 H Respiratory Rate 14 Blood Pressure 145/92 H Blood Pressure Mean 109 Pulse Ox 95 Oxygen Delivery Method Room Air Positive well nourished and well developed General Appearance ED: well developed HEENT Reports normocephalic, head/scalp atraumatic and moist mucous membranes HEENT Narrative: Patient reports tenderness to palpation of the occipital scalp. There is no palpable bony depression or obvious fracture. No hematoma. No breaks in the skin. There is no hemotympanums. There is no Kingsley sign or raccoon eyes. Eyes PERRL and EOMs intact bilaterally Neck full ROM, no lymphadenopathy, supple and no JVD Resp normal respiratory effort and clear to auscultation bilaterally Cardio regular rate, regular rhythm and no murmurs GI normal to inspection, nondistended, normoactive bowel sounds and non-tender Palpation: soft Back/Spine no CVA tenderness and normal ROM Extremity normal to inspection General Extremety ED: Negative for edema General Extremity: Negative for edema Neuro oriented x3 and CN's II-XII intact bilaterally [place] Coma Scale: document GCS findings Spontaneous Obeys Commands Oriented 15 Sensorium / Orientation: alert Motor Exam: strength 5/5 throughout Psych mental status grossly normal Mood & Affect: Negative for depressed or tearful Skin no rashes or lesions noted and no wounds MDM MDM MDM Narrative Medical decision making narrative: Patient is 23 years old not on anticoagulants. He has no evidence of significant skull fracture. There is no scalp hematoma no neurologic deficits GCS is 15 no abnormal behavior. No history of coagulopathy persistent vomiting therefore his risk of intracranial hemorrhage the need for CT is low risk. Patient was given return symptoms. He notes understanding of the plan. History & Record Review Discussion w/independent historian: Patient Discharge Plan Triage Chief Complaint: Head Injury ED Provider: Sukh Lazcano Dx/Rx/DC Orders Prescriptions: No Action NK Primary Care Provider: JOHANNA NEVILLE Referrals: JAMIN,JOHANNA, ARC WELDER-C [Primary Care Provider] - Print Language: Indonesian
== END 2024-03-30 23:46 | disposition home or self-care (01) ==
LOC: ED 23:40
PROVIDERS: Emergency Provider Emergency Medicine; PCP Nurse Practitioner Family; Visit Provider Emergency Medicine
DX: S09.90XA Unspecified injury of head, initial encounter (principal); I10 Essential (primary) hypertension; Z59.00 Homelessness unspecified; Z87.891 Personal history of nicotine dependence; W01.0XXA Fall on same level from slipping, tripping and stumbling without subsequent striking against object, initial encounter
CPT/HCPCS: 99282

== ENCOUNTER 2024-09-29 15:10 | Emergency (ER) | payer MEDICAID, SELFPAY ==
[2024-09-29 15:11] VITALS: BP 162/107; PULSE 127; RESP 15; TEMP 36.6; O2SAT 98; BMI 36.3
--- NOTE | 2024-09-29 15:18 | EDS_ITS ---
HPI History of Present Illness Chief Complaint: Head Injury [facility] Medical History Neurofibromatosis, type 1 Learning disability Hypertension ADHD Home Medications ?Medication ?Instructions ?Recorded ?Last Taken ?Type ondansetron 4 mg disintegrating 4 mg PO Q8H PRN PRN Nausea #10 tabs 09/29/24 Unknown Rx tablet Allergy/AdvReac Type Severity Reaction Status Date / Time No Known Allergies Allergy Verified 09/29/24 15:11 Family History Father Diabetes Heart disease Mother Heart disease Hypertension Mental disorder Suicide attempt Surgical History No history of previous surgery Social History housing: [facility] Smoking Status: Current some day smoker tobacco type: e-cigarettes second hand exposure: Yes alcohol intake: never substance use type: does not use what type of physical activity do you participate in: walking frequency: daily giacomo/samaritan: Mormonism seatbelt use: always EXAM Physical Exam Const Vital Signs: 09/29/24 15:11 09/29/24 15:14 Temperature 97.8 F Temperature Source Temporal Pulse Rate 127 H Respiratory Rate 15 Respiratory Effort Normal Respiratory Depth Normal Blood Pressure 162/107 H Blood Pressure Mean 125 Pulse Ox 98 Oxygen Delivery Method Room Air Room Air MDM MDM MDM Narrative Medical decision making narrative: HISTORY OF PRESENT ILLNESS: 23-year-old male here after head trauma. Notes he hit his head on the ground approximately 1 hour ago. Complains of dizziness headache and nausea and vomiting. REVIEW OF SYSTEMS: Pertinent positives: Head trauma, nausea, vomiting, Pertinent negatives: PHYSICAL EXAM: Nursing triage notes reviewed, Vital signs reviewed Primary Survey Airway: Intact Breathing: Bilateral breath sounds Circulation: Palpable bilateral femorals, Palpable bilateral radial, Palpable bilateral DP and Palpable bilateral PT Disability / Spine precautions GCS Score: Eye Openin Verbal Response: 5 Motor Response: 6 Secondary Survey Constitutional: Please see MDM Head: Atraumatic, Midface stable, NO jaw malocclusion, No Cephalohematoma, and No Lacerations noted Eye: Pupils equal round and reactive to light, Extraocular muscles intact and No periorbital ecchymosis or stepoff, no evidence of entrapment ENT: Oropharynx clear, no lacerations, no hemotympanum, no raccoon eyes or kovacs sign Cervical spine / Neck: No cervical spine bony tenderness, crepitance, or stepoff deformity Trachea midline Lungs: Clear to auscultation, No asymmetric rise and No crepitus, no flail chest Cardiac: Regular rate and rhythm and No murmurs Abdomen: Soft, Nontender and No rebound Pelvis: Pelvis stable to compression : No evidence of genital injury Back: No midline bony tenderness to thoracic/lumbar/sacral spines Neuro: At baseline, intact strength and sensation in bilateral upper and lower extremities. 2+ patellar reflexes bilaterally. Extremities: NO gross Deformities Psych: Normal affect Nursing triage notes reviewed, Vital signs reviewed MEDICAL DECISION MAKING: Chief Complaint: Head trauma, nausea vomiting External records reviewed: CT scan of the head shows no acute intracranial normality, mild paranasal sinus disease Factors affecting care: none Social determinants of health: none History obtained from others: none Consults: none [facility] Narrative: Patient was initially hypertensive with blood pressure 162/107, tachycardic to 127, no fever. Exam unremarkable. Specifically no cephalhematoma signs of lacerations. I considered the following differential diagnosis: ICH, skull fracture, concussion, cervical spine fracture dislocation Patient was treated with oral Zofran. ALL IMAGES (IF OBTAINED) HAVE BEEN PERSONALLY REVIEWED AND INTERPRETED BY MYSELF. CT scan of the head is negative CT of the cervical spine was also negative Tertiary exam did not reveal any additional traumatic injuries. I suspect the patient suffered from a concussion. He was given Zofran to take as needed try to take Tylenol ibuprofen and strict return precautions. The patient and/or family, caregivers express understanding. The patient and/or family, caregivers agrees with the plan. Shared decision making: I will have a discussion with the patient and or visitors regarding risk/benef its of further testing or admission. They will be made aware of of the risk/benefits inherent in this decision they will be given the opportunity to voice understanding. Total critical care time today provided was at least 0 minutes. This excludes separately billable procedures. Critical care time (if documented) is secondary to the patient having high probability of clinically significant/life threatening deterioration in the patient's condition which required my urgent intervention. Impression: 1. Closed head injury 2. Nausea and vomiting Dispo: Discharge home This note was generated with D-Sight dictation software. It may contain incorrect words, spelling, and punctuation that were not noted in review of the chart prior to signing. Radiography Diagnostic Testing: Clinical Impression(s) from Imaging Studies Brain CT 09/29/24 15:34 IMPRESSION: Negative head/brain CT without intravenous contrast. Electronically Signed: Javi Paige MD at 17:05 EST , Cervical Spine CT 09/29/24 15:34 IMPRESSION: No evidence of acute cervical spinal fracture or spondylolisthesis. Electronically Signed: Javi Paige MD at 17:12 EST , Discharge Plan Triage Chief Complaint: Head Injury ED Provider: Bob Raygoza Dx/Rx/DC Orders Instructions: ED Concussion Prescriptions: New ondansetron 4 mg tablet,disintegrating 4 mg PO Q8H PRN PRN (Reason: Nausea) Qty: 10 0RF Primary Care Provider: JOHANNA NEVILLE Referrals: JOHANNA NEVILLE, DIAGRAM CLERK-C [Primary Care Provider] - Activity Restrictions/Additional Instructions: Thank you for trusting us with your care today! Your imaging studies were reassuring. There showed no evidence of bleeding in the brain or fractures of your neck. You are likely suffering from a concussion. Please take Zofran as needed for nausea and vomiting Please take Tylenol (2 pills, 650 mg), ibuprofen (2 pills, 400 mg) every 6 hours as needed for pain and fever control. Please return to the emergency department if your symptoms change or worsen. Please follow with your primary care physician for further outpatient evaluation and management. Print Language: Sami Disposition Disposition: Home, Self Care
--- NOTE | 2024-09-29 15:34 | CT_ITS ---
EXAM: CT HEAD WITHOUT INTRAVENOUS CONTRAST CLINICAL INDICATION: head trauma TECHNIQUE: Multiple axial images were obtained of the head without intravenous contrast. This CT exam was performed using one or more of the following dose reduction techniques: automated exposure control, adjustment of the mA and/or kV according to patient size, and/or use of iterative reconstruction technique. COMPARISON: 11/11/2023 FINDINGS: BRAIN AND EXTRA-AXIAL SPACES: Unremarkable. No intra- or extra-axial hemorrhage. No evidence of acute infarct. No intracranial mass or mass effect. There is preservation of the boudreaux/white matter interface. Posterior fossa structures are unremarkable. Ventricles are appropriate for age. No hydrocephalus. Basal cisterns are patent. BONES/JOINTS: Unremarkable. No discrete lytic or blastic abnormalities. SINUSES: Unremarkable as visualized. Clear. MASTOID AIR CELLS: Unremarkable. Clear. ORBITS: Visualized globes, extraocular muscles, optic nerves and retrobulbar fat appear unremarkable. CT/Brain/Head without Contrast IMPRESSION: Negative head/brain CT without intravenous contrast. Electronically Signed: Javi Paige MD at 17:05 EST ,
--- NOTE | 2024-09-29 15:34 | CT_ITS ---
EXAM: CT CERVICAL SPINE WITHOUT INTRAVENOUS CONTRAST CLINICAL INDICATION: neck pain TECHNIQUE: Helically acquired images were obtained of the cervical spine without intravenous contrast. 2D reformatted images were reviewed. This CT exam was performed using one or more of the following dose reduction techniques: automated exposure control, adjustment of the mA and/or kV according to patient size, and/or use of iterative reconstruction technique. COMPARISON: No relevant prior studies available. FINDINGS: VERTEBRAE: Unremarkable. No fracture. No traumatic subluxation. No discrete lytic or blastic abnormality. Normal alignment. Normal craniocervical junction and cervicothoracic junction. DISCS/SPINAL CANAL/NEURAL FORAMINA: Unremarkable. Disc heights are preserved. No critical stenosis. SOFT TISSUES: Unremarkable. No prevertebral soft tissue swelling. LYMPH NODES: Unremarkable. No cervical adenopathy. LUNG APICES: Unremarkable as visualized. Clear. CT/Spine Cervical without Contras IMPRESSION: No evidence of acute cervical spinal fracture or spondylolisthesis. Electronically Signed: Javi Paige MD at 17:12 EST ,
[2024-09-29] MEDS: Ondansetron ODT 4 MG Tablet PO (15:56)
[2024-09-29 17:20] VITALS: BP 142/69; PULSE 78; RESP 16; TEMP 36.4; O2SAT 96
== END 2024-09-29 17:29 | disposition home or self-care (01) ==
PROVIDERS: Emergency Provider Emergency Medicine; PCP Nurse Practitioner Family; Visit Provider Emergency Medicine
DX: S09.90XA Unspecified injury of head, initial encounter (principal); R11.2 Nausea with vomiting, unspecified; X58.XXXA Exposure to other specified factors, initial encounter; F90.9 Attention-deficit hyperactivity disorder, unspecified type; I10 Essential (primary) hypertension; F17.290 Nicotine dependence, other tobacco product, uncomplicated
CPT/HCPCS: 70450; 72125; 99282